=== PATIENT | female | born 1985 | race Caucasian/White ===

== ENCOUNTER 2025-01-11 09:00 | Outpatient (AMB) | payer OTHER, SELFPAY ==
[2025-01-11 09:07] VITALS: BP 107/71; PULSE 63; RESP 16; O2SAT 100; BMI 26.1
--- NOTE | 2025-01-11 09:07 | A.OFFVIS_ITS ---
Vital Signs 01/11/25 09:07 Height 5 ft 1 in Weight 138 lb BMI 26.1 BP 107/71 Blood Pressure Location Rt brachial Position Sitting Respiration 16 Pulse 63 Pulse Source Pulse Oximeter Pulse Oximetry (%) 100 Oxygen Delivery Method Room Air Intake Visit Reasons: re-est Migraine Allergies latex (LATEX) Allergy (Intermediate, Unverified 01/11/25 09:07) HIVES AND SWELLING Medication List - Last Reconciled 01/13/25 by Iwona Dominguez, ALEXA rizatriptan mg PO HPI Comments Details: Elba is a 39-year-old female patient who has been seeing at [facility] for migraine and occipital neuralgia. She is transferring her care here to [facility]. Historically, her headaches have been predominantly occipital radiating to the neck area and retro-orbital areas. Headaches have often awoken her from sleep when they become severe and can arise at any point during the day. Headaches come with a sense of fullness in her head and are associated with light and sound sensitivity, nausea, and anxiety. She denies any auras or visual disturbances. She has tried several agents for her migraines including: Amitriptyline which caused excessive somnolence Topiramate, which caused significant brain fog Propranolol we have historically avoided due to lower blood pressures Nurtec which she has currently been taking initially helped though is now becoming less effective. She takes 75 mg every other day She has more recently been getting severe migraine-type headaches on average twice per week. Her migraines are occipital and bilateral. They radiate to the retro-orbital areas and are associated with severe light and sound sensitivity. She feels that she has a near constant level of light sensitivity and has been wearing sunglasses much more lately due to her sensitivity. Her migraines and continuous light sensitivity have been significantly impacting her day-to-day life and she is finding it more and more difficult to perform her activities of daily living because of her symptoms. She notes that her headaches are often worse during her work week when she feels tense at work. For abortive therapy, she has been taking naproxen a couple of times per week and Tylenol a couple of times per week. Sleep has been going well. She has no difficulty sleeping and feels that she feels rested in the morning. She has had headaches historically with her menses however generally these headaches are more mild and her more severe type headaches are not necessarily associated with her menses. [facility] Medical History (Updated 01/13/25 @ 10:02 by Iwona Dominguez CNP) Episodic headache Review of Systems Const All systems reviewed & are unremarkable except as noted in HPI and below Physical Exam Vital Signs: Last Vital Signs Pulse 63 01/11/25 09:07 Resp 16 01/11/25 09:07 BP 107/71 01/11/25 09:07 Pulse Ox 100 01/11/25 09:07 Oxygen Delivery Method Room Air 01/11/25 09:07 BMI result Body Mass Index 26.1 Const General: cooperative, healthy appearing, comfortable and no acute distress Nutritional Appearance: well nourished Orientation/consciousness: patient oriented x3 Limitations: no limitations HEENT Head: Yes normal to inspection and Yes normocephalic Eyes General: appearance normal, both eyes and all related structures Visual Oleary: normal visual oleary by confrontation Alignment and Position: alignment normal Periorbital: periorbital findings normal Eyelids: Yes eyelids normal Conjunctivae: conjunctivae normal Sclerae: sclerae normal Neck Neck: Yes normal visual inspection and Yes full ROM Back/Spine/Pelvis Other: Bilateral occipital notch tenderness and bilateral trapezius trigger points Cervical Spine: normal cervical lordosis Thoracic/Lumbar Spine: thoracic and lumbar spine normal to inspection Neuro General: patient oriented x3 Cranial nerves: Yes CN's II-XII intact bilaterally Cognition (Neuro): normal cognition Gait exam (Neuro): Normal gait present Motor exam (neuro): no tremor noted Romberg Test: Negative Pupils: Normal pupillary reactivity/response: bilateral Psych Appearance: grossly normal Mental Status: mental status grossly normal Speech and movement: Normal speech and movement present and Clear speech present Affect: normal affect Attitude: cooperative Thought process: Normal thought process present Thought content: Normal thought content present Insight: Good insight present (Psych) Judgement: Good judgement present (Psych) Assessment & Plan Assessment & Plan (1) Migraine without aura and without status migrainosus, not intractable: Code(s): G43.009 - Migraine without aura, not intractable, without status migrainosus Category: Medical Plan: . (2) Occipital neuralgia: Code(s): M54.81 - Occipital neuralgia Category: Medical Plan: . Magaly Arreola is a 39-year-old female patient who has been seeing at [facility] for migraine and occipital neuralgia. She is transferring her care here to [facility]. She has headaches consistent with episodic migraine and occipital neuralgia. There was likely a tension component as her headaches can tend to be worse during the work week and she notes a sensation of tension building on her workdays at times. 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 We together discussed escalations steps in therapy including some of the injectable anti CGRP therapies. For her tension component, I will also provide her with tizanidine. I am recommending 2 mg nightly. At the time of her next visit, we can consider her abortive therapies once her headaches are better controlled. She has in the past use rizatriptan however this is not been beneficial though in the setting of more frequent headaches, abortive therapies can become less effective. -start a trial of Emgality (240 mg loading dose and 120 mg monthly) -start a trial of tizanidine 2 mg nightly -consider abortive therapies at time of next visit if headaches have improved -in the meantime, can use [id number] analgesics sparingly Medications: New tizanidine 2 mg PO BEDTIME 30 tabs 5RF muscle spasticity 30 days galcanezumab-gnlm (Emgality Pen) Loading dose 240 mg (2 mL) subcut ONCE 2 mL 0RF galcanezumab-gnlm (Emgality Pen) 120 mg subcut QMONTH 1 mL 4RF Coding Level of Care Code Est Pt Level 4 (06079) Diagnoses Migraine without aura and without status migrainosus, not intractable G43.009 Occipital neuralgia M54.81
--- OUTSIDE RECORDS SUMMARY | 2025-01-11 09:48 | XMS_ITS | Data Portability ---
Author Organization [facility], Main Office Address [address] [place] [address] Care Team Providers Care Station G[place]eman Name Role Phone XIOMARA COOPER Primary Care Provider [phone] [facility] [employer] ARCHITECT Manager Maritime ADALI BARROSO Neurologist [facility] Referring Provider Assessment No assessment recorded. Plan of Treatment Reminders Order Date Submit Date Provider Last Modified By Organization Details Last Modified Time Details Appointments None record ed. Lab CBC w/ auto diff 2024 025 ANGELA [facility] (Centralized Electronic Ordering - All Locations), Patient Can Go To The Location Of Their Choice, 5 22:05:58 CBC w/ auto diff 2023 024 ANGELA [facility] (Centralized Electronic Ordering - All Locations), Patient Can Go To The Location Of Their Choice, [id number] 4 13:00:05 TSH, ultra- sensit debi, serum 2023 024 ANGELA [facility] (Centralized Electronic Ordering - All Locations), Patient Can Go To The Location Of Their Choice, [id number] 4 06:09:21 lipid panel, serum 2023 024 ANGELA [facility] (Centralized Electronic Ordering - All Locations), Patient Can Go To The Location Of Their Choice, [id number] 4 06:09:21 CMP, serum or plasma 2023 024 ANGELA [facility] (Centralized Electronic Ordering - All Locations), Patient Can Go To The Location Of Their Choice, [id number] 4 06:09:20 CBC w/ auto diff 2023 024 ANGELA [facility] (Centralized Electronic Ordering - All Locations), Patient Can Go To The Location Of Their Choice, [id number] 4 06:09:20 Referral neurol ogist referr al - Cervic o-occi pital headac hes. Intere sted in occipi stephen block. 2024 025 Not available 5 11:33:33 gyneco logist referr al 2024 025 [email or web address] Not available 5 10:04:41 gyneco logist referr al 2023 024 [email or web address] Not available 4 11:05:50 Procedures None record ed. Surgeries None record ed. Imaging MAMMO, screen ing, bilate ral 2024 [facility] [address], [place], [address], 5 10:14:58 Medication Orders topira mate 50 mg tablet 2024 025 FREDONIA [facility], [address] [place] [address], [id number], 5 09:45:14 topira mate 50 mg tablet 2023 024 [facility], [address] [place] [address], [address], 4 10:29:59 Patient TargetsNo targets recorded. Patient Instructions Encounter Date Encounter Id Patient Instructions Last Modified By Organization Details Last Modified Time 08/21/2021 [id number] migraine headach e: care instructions Not available 08/21/2021 16:59:53 gastroesophageal reflux disease (GERD): care instructions Not available 08/21/2021 17:00:20 11/23/2023 [id number] high cholesterol : care instructions Not available 11/23/2023 09:07:17 When You Want to Lose Weight: Care Instructions Not available 11/23/2023 09:03:49 01/20/2024 [id number] learning about h igh white blood cell counts Not available 01/20/2024 12:59:52 12/07/2024 [id number] mammogram: about this test Not available 12/07/2024 09:30:12 Generalized Anxi ety Disorder: Care Instructions Not available 12/07/2024 12:26:44 Reason for Referral Manager Maritime Referral for Sc reening for malignant neoplasm of cervix Referring Physician: Xiomara Cooper, Internal Medicine, Encounter Date: 11/23/2023 Manager Maritime Referral for Ca ncer cervix screening status Referring Physician: Xiomara Cooper Internal Medicine, Encounter Date: 12/07/2024 Neurologist Referral for Cer rebeca-occipital neuralgia Cervico-occipital headaches. Interested in occipital block. Referring Physician: Xiomara Cooper Internal Medicine, Encounter Date: 12/07/2024 Results Created Date Observation Date Name Description Value Unit Range Abnormal Flag Note LastModifiedBy Organization Detail LastModifiedTime 12/09/19 24 12/10/2023 CBC WITH DIFFE RENTI AL/PL ATELE T WBC 3.3 x10e3 /uL 3.4-10 .8 below low normal Not Available [facility] ([facility]) [address] [place], [address], 12/10/2023 06:09:19 12/09/19 24 12/10/2023 CBC WITH DIFFE RENTI AL/PL ATELE T RBC 3.68 x10e6 /uL 3.77-5 .28 below low normal Not Available [facility] ([facility]) [address] [place], [address], 12/10/2023 06:09:19 12/09/19 24 12/10/2023 CBC WITH DIFFE RENTI AL/PL ATELE T hemoglobin 11.7 g/dL 11.1-1 5.9 normal Not Available [facility] ([facility]) [address] [place], [address], 12/10/2023 06:09:19 12/09/19 24 12/10/2023 CBC WITH DIFFE RENTI AL/PL ATELE T hematocrit 35.8 % 34.0-4 6.6 normal Not Available [facility] ([facility]) [address] [place], [address], 12/10/2023 06:09:19 12/09/19 24 12/10/2023 CBC WITH DIFFE RENTI AL/PL ATELE T MCV 97 fL 79-97 normal Not Available [facility] ([facility]) [address] [place], [address], 12/10/2023 06:09:19 12/09/19 24 12/10/2023 CBC WITH DIFFE RENTI AL/PL ATELE T MCH 31.8 pg 26.6-3 3.0 normal Not Available [facility] ([facility]) [address] [place], [address], 12/10/2023 06:09:19 12/09/19 24 12/10/2023 CBC WITH DIFFE RENTI AL/PL ATELE T MCHC 32.7 g/dL 31.5-3 5.7 normal Not Available [facility] ([facility]) [address] [place], [address], 12/10/2023 06:09:19 12/09/19 24 12/10/2023 CBC WITH DIFFE RENTI AL/PL ATELE T RDW 12.3 % 11.7-1 5.4 Not Available [facility] ([facility]) [address] [place], [address], 12/10/2023 06:09:19 12/09/19 24 12/10/2023 CBC WITH DIFFE RENTI AL/PL ATELE T platelets 300 x10e3 /uL 150-45 0 normal Not Available [facility] ([facility]) [address] [facility], [place], [address], 12/10/2023 06:09:19 12/09/19 24 12/10/2023 CBC WITH DIFFE RENTI AL/PL ATELE T neutrophils 41 % not estab. normal Not Available [facility] ([facility]) [address] [facility], [place], [address], 12/10/2023 06:09:19 12/09/19 24 12/10/2023 CBC WITH DIFFE RENTI AL/PL ATELE T lymphs 48 % not estab. normal Not Available [facility] ([facility]) [address] [facility], [place], [address], 12/10/2023 06:09:19 12/09/19 24 12/10/2023 CBC WITH DIFFE RENTI AL/PL ATELE T monocytes 9 % not estab. normal Not Available [facility] ([facility]) [address] [facility], [place], [address], 12/10/2023 06:09:19 12/09/19 24 12/10/2023 CBC WITH DIFFE RENTI AL/PL ATELE T eos 1 % not estab. normal Not Available [facility] ([facility]) [address] [facility], [place], [address], 12/10/2023 06:09:19 12/09/19 24 12/10/2023 CBC WITH DIFFE RENTI AL/PL ATELE T basos 1 % not estab. normal Not Available [facility] ([facility]) [address] [place], [address], 12/10/2023 06:09:19 12/09/19 24 12/10/2023 CBC WITH DIFFE RENTI AL/PL ATELE T immature cells FIRST ASSIST Not Available [facility] ([facility]) [address] [place], [address], 12/10/2023 06:09:19 12/09/19 24 12/10/2023 CBC WITH DIFFE RENTI AL/PL ATELE T neutrophils (absolute) 1.3 x10e3 /uL 1.4-7. 0 below low normal Not Available [facility] ([facility]) [address] [facility], [place], [address], 12/10/2023 06:09:19 12/09/19 24 12/10/2023 CBC WITH DIFFE RENTI AL/PL ATELE T lymphs (absolute) 1.6 x10e3 /uL 0.7-3. 1 normal Not Available [facility] ([facility]) [address] [place], [address], 12/10/2023 06:09:19 12/09/19 24 12/10/2023 CBC WITH DIFFE RENTI AL/PL ATELE T monocytes(ab solute) 0.3 x10e3 /uL 0.1-0. 9 normal Not Available [facility] ([facility]) [address] [place], [address], 12/10/2023 06:09:19 12/09/19 24 12/10/2023 CBC WITH DIFFE RENTI AL/PL ATELE T eos (absolute) 0.0 x10e3 /uL 0.0-0. 4 normal Not Available [facility] ([facility]) [address] [place], [address], 12/10/2023 06:09:19 12/09/19 24 12/10/2023 CBC WITH DIFFE RENTI AL/PL ATELE T baso (absolute) 0.0 x10e3 /uL 0.0-0. 2 normal Not Available [facility] ([facility]) [address] [place], [address], 12/10/2023 06:09:19 12/09/19 24 12/10/2023 CBC WITH DIFFE RENTI AL/PL ATELE T immature granulocytes 0 % not estab. Not Available [facility] ([facility]) [address] [facility], [place], [address], 12/10/2023 06:09:19 12/09/19 24 12/10/2023 CBC WITH DIFFE RENTI AL/PL ATELE T immature grans (abs) 0.0 x10e3 /uL 0.0-0. 1 Not Available [facility] ([facility]) [address] [facility], [place], [address], 12/10/2023 06:09:19 12/09/19 24 12/10/2023 CBC WITH DIFFE RENTI AL/PL ATELE T NRBC FIRST ASSIST Not Available [facility] ([facility]) [address] [facility], [place], [address], 12/10/2023 06:09:19 12/09/19 24 12/10/2023 CBC WITH DIFFE RENTI AL/PL ATELE T hematology comments: FIRST ASSIST Not Available [facility] ([facility]) [address] [facility], [place], [address], 12/10/2023 06:09:19 12/09/19 24 12/10/2023 COMP. METAB OLIC PANEL (14) glucose 86 mg/dL 70-99 normal Not Available [facility] ([facility]) [address] [facility], [place], [address], 12/10/2023 06:09:20 12/09/19 24 12/10/2023 COMP. METAB OLIC PANEL (14) BUN 11 mg/dL 6-20 normal Not Available [facility] ([facility]) [address] [place], [address], 12/10/2023 06:09:20 12/09/19 24 12/10/2023 COMP. METAB OLIC PANEL (14) creatinine 0.85 mg/dL 0.57-1 .00 normal Not Available [facility] ([facility]) [address] [place], [address], 12/10/2023 06:09:20 12/09/19 24 12/10/2023 COMP. METAB OLIC PANEL (14) eGFR 90 mL/mi n/1.7 3 >59 normal Not Available [facility] ([facility]) [address] [place], [address], 12/10/2023 06:09:20 12/09/19 24 12/10/2023 COMP. METAB OLIC PANEL (14) BUN/creatini ne ratio 13 9-23 normal Not Available [facility] ([facility]) [address] [facility] [place], [address], 12/10/2023 06:09:20 12/09/19 24 12/10/2023 COMP. METAB OLIC PANEL (14) sodium 138 mmol/ L 134-14 4 normal Not Available [facility] ([facility]) [address] [facility] [place], [address], 12/10/2023 06:09:20 12/09/19 24 12/10/2023 COMP. METAB OLIC PANEL (14) potassium 4.1 mmol/ L 3.5-5. 2 normal Not Available [facility] ([facility]) [address] [place], [address], 12/10/2023 06:09:20 12/09/19 24 12/10/2023 COMP. METAB OLIC PANEL (14) chloride 102 mmol/ L 96-106 normal Not Available [facility] ([facility]) [address] [facility] [place], [address], 12/10/2023 06:09:20 12/09/19 24 12/10/2023 COMP. METAB OLIC PANEL (14) carbon dioxide, total 22 mmol/ L 20-29 normal Not Available [facility] ([facility]) [address] [facility] [place], [address], 12/10/2023 06:09:20 12/09/19 24 12/10/2023 COMP. METAB OLIC PANEL (14) calcium 9.2 mg/dL 8.7-10 .2 normal Not Available [facility] ([facility]) [address] [place], [address], 12/10/2023 06:09:20 12/09/19 24 12/10/2023 COMP. METAB OLIC PANEL (14) protein, total 6.8 g/dL 6.0-8. 5 normal Not Available [facility] ([facility]) [address] [place], [address], 12/10/2023 06:09:20 12/09/19 24 12/10/2023 COMP. METAB OLIC PANEL (14) albumin 4.6 g/dL 3.9-4. 9 normal Not Available [facility] ([facility]) [address] [facility] [place], [address], 12/10/2023 06:09:20 12/09/19 24 12/10/2023 COMP. METAB OLIC PANEL (14) globulin, total 2.2 g/dL 1.5-4. 5 Not Available [facility] ([facility]) [address] [facility] [place], [address], 12/10/2023 06:09:20 12/09/19 24 12/10/2023 COMP. METAB OLIC PANEL (14) bilirubin, total 0.6 mg/dL 0.0-1. 2 normal Not Available [facility] ([facility]) [address] [facility] [place], [address], 12/10/2023 06:09:20 12/09/19 24 12/10/2023 COMP. METAB OLIC PANEL (14) alkaline phosphatase 31 IU/L 44-121 below low normal Not Available [facility] ([facility]) [address] [facility] [place], [address], 12/10/2023 06:09:20 12/09/19 24 12/10/2023 COMP. METAB OLIC PANEL (14) AST (SGOT) 16 IU/L 0-40 normal Not Available [facility] ([facility]) [address] [facility] [place], [address], 12/10/2023 06:09:20 12/09/19 24 12/10/2023 COMP. METAB OLIC PANEL (14) ALT (SGPT) 13 IU/L 0-32 normal Not Available [facility] ([facility]) [address] [facility] [place], [address], 12/10/2023 06:09:20 12/09/19 24 12/10/2023 LIPID PANEL cholesterol, total 145 mg/dL 100-19 9 normal Not Available [facility] ([facility]) [address] [facility] [place], [address], 12/10/2023 06:09:21 12/09/19 24 12/10/2023 LIPID PANEL triglyceride s 38 mg/dL 0-149 normal Not Available [facility] ([facility]) [address] [facility] [place], [address], 12/10/2023 06:09:21 12/09/19 24 12/10/2023 LIPID PANEL HDL cholesterol 69 mg/dL >39 normal Not Available [facility] ([facility]) [address] [facility] [place], [address], 12/10/2023 06:09:21 12/09/19 24 12/10/2023 LIPID PANEL VLDL cholesterol latoya 9 mg/dL 5-40 Not Available [facility] ([facility]) [address] [facility] [place], [address], 12/10/2023 06:09:21 12/09/19 24 12/10/2023 LIPID PANEL LDL chol calc ([facility]) 67 mg/dL 0-99 Not Available [facility] ([facility]) [address] [place], [address], 12/10/2023 06:09:21 12/09/19 24 12/10/2023 LIPID PANEL LDL calc comment: FIRST ASSIST Not Available [facility] ([facility]) [address] [facility] [place], [address], 12/10/2023 06:09:21 12/09/19 24 12/10/2023 TSH TSH 1.220 uIU/m L 0.450- 4.500 normal Not Available [facility] ([facility]) [address] [place], [address], 12/10/2023 06:09:21 12/08/19 25 12/07/2024 CBC WITH DIFFE RENTI AL/PL ATELE T WBC 3.3 x10e3 /uL 3.4-10 .8 below low normal Not Available [facility] ([facility]) [address] [place], [address], 12/07/2024 22:05:58 12/08/19 25 12/07/2024 CBC WITH DIFFE RENTI AL/PL ATELE T RBC 3.73 x10e6 /uL 3.77-5 .28 below low normal Not Available [facility] ([facility]) [address] [place], [address], 12/07/2024 22:05:58 12/08/19 25 12/07/2024 CBC WITH DIFFE RENTI AL/PL ATELE T hemoglobin 11.9 g/dL 11.1-1 5.9 normal Not Available [facility] ([facility]) [address] [place], [address], 12/07/2024 22:05:58 12/08/19 25 12/07/2024 CBC WITH DIFFE RENTI AL/PL ATELE T hematocrit 36.2 % 34.0-4 6.6 normal Not Available [facility] ([facility]) [address] [place], [address], 12/07/2024 22:05:58 12/08/19 25 12/07/2024 CBC WITH DIFFE RENTI AL/PL ATELE T MCV 97 fL 79-97 normal Not Available [facility] ([facility]) [address] [facility], [place], [address], 12/07/2024 22:05:58 12/08/19 25 12/07/2024 CBC WITH DIFFE RENTI AL/PL ATELE T MCH 31.9 pg 26.6-3 3.0 normal Not Available [facility] ([facility]) [address] [place], [address], 12/07/2024 22:05:58 12/08/19 25 12/07/2024 CBC WITH DIFFE RENTI AL/PL ATELE T MCHC 32.9 g/dL 31.5-3 5.7 normal Not Available [facility] ([facility]) [address] [place], [address], 12/07/2024 22:05:58 12/08/19 25 12/07/2024 CBC WITH DIFFE RENTI AL/PL ATELE T RDW 12.1 % 11.7-1 5.4 Not Available [facility] ([facility]) [address] [place], [address], 12/07/2024 22:05:58 12/08/19 25 12/07/2024 CBC WITH DIFFE RENTI AL/PL ATELE T platelets 303 x10e3 /uL 150-45 0 normal Not Available [facility] ([facility]) [address] [place], [address], 12/07/2024 22:05:58 12/08/19 25 12/07/2024 CBC WITH DIFFE RENTI AL/PL ATELE T neutrophils 44 % not estab. normal Not Available [facility] ([facility]) [address] [place], [address], 12/07/2024 22:05:58 12/08/19 25 12/07/2024 CBC WITH DIFFE RENTI AL/PL ATELE T lymphs 45 % not estab. normal Not Available [facility] ([facility]) [address] [place], [address], 12/07/2024 22:05:58 12/08/19 25 12/07/2024 CBC WITH DIFFE RENTI AL/PL ATELE T monocytes 9 % not estab. normal Not Available [facility] ([facility]) [address] [facility], [place], [address], 12/07/2024 22:05:58 12/08/19 25 12/07/2024 CBC WITH DIFFE RENTI AL/PL ATELE T eos 1 % not estab. normal Not Available [facility] ([facility]) [address] [facility], [place], [address], 12/07/2024 22:05:58 12/08/19 25 12/07/2024 CBC WITH DIFFE RENTI AL/PL ATELE T basos 1 % not estab. normal Not Available [facility] ([facility]) [address] [place], [address], 12/07/2024 22:05:58 12/08/19 25 12/07/2024 CBC WITH DIFFE RENTI AL/PL ATELE T immature cells FIRST ASSIST Not Available [facility] ([facility]) [address] [place], [address], 12/07/2024 22:05:58 12/08/19 25 12/07/2024 CBC WITH DIFFE RENTI AL/PL ATELE T neutrophils (absolute) 1.5 x10e3 /uL 1.4-7. 0 normal Not Available [facility] ([facility]) [address] [place], [address], 12/07/2024 22:05:58 12/08/19 25 12/07/2024 CBC WITH DIFFE RENTI AL/PL ATELE T lymphs (absolute) 1.5 x10e3 /uL 0.7-3. 1 normal Not Available [facility] ([facility]) [address] [facility], [place], [address], 12/07/2024 22:05:58 12/08/19 25 12/07/2024 CBC WITH DIFFE RENTI AL/PL ATELE T monocytes(ab solute) 0.3 x10e3 /uL 0.1-0. 9 normal Not Available [facility] ([facility]) [address] [facility], [place], [address], 12/07/2024 22:05:58 12/08/19 25 12/07/2024 CBC WITH DIFFE RENTI AL/PL ATELE T eos (absolute) 0.0 x10e3 /uL 0.0-0. 4 normal Not Available [facility] ([facility]) [address] [place], [address], 12/07/2024 22:05:58 12/08/19 25 12/07/2024 CBC WITH DIFFE RENTI AL/PL ATELE T baso (absolute) 0.0 x10e3 /uL 0.0-0. 2 normal Not Available [facility] ([facility]) [address] [facility], [place], [address], 12/07/2024 22:05:58 12/08/19 25 12/07/2024 CBC WITH DIFFE RENTI AL/PL ATELE T immature granulocytes 0 % not estab. Not Available [facility] ([facility]) [address] [place], [address], 12/07/2024 22:05:58 12/08/19 25 12/07/2024 CBC WITH DIFFE RENTI AL/PL ATELE T immature grans (abs) 0.0 x10e3 /uL 0.0-0. 1 Not Available [facility] ([facility]) [address] [place], [address], 12/07/2024 22:05:58 09/19/20 25 12/07/2024 CBC WITH DIFFE RENTI AL/PL ATELE T NRBC FIRST ASSIST Not Available [facility] ([facility]) [address] [facility], [place], [address], 12/07/2024 22:05:58 12/08/19 25 12/07/2024 CBC WITH DIFFE RENTI AL/PL ATELE T hematology comments: FIRST ASSIST Not Available [facility] ([facility]) [address] [facility], [place], [address], 12/07/2024 22:05:58 10/15/19 23 10/14/2022 US, georgina t, limit ed PROCED URE: MM Digita l Mammo Bilate ral, US Breast Right Limite d INDICA TION: Screen ing exam left breast . Palpab le abnorm ality right breast COMPAR MATT: 2019 TECHNI QUE: Digita l diagno stic mammog romario consis ting of CC and MLO views of the breast s with 3D tomosy nthesi s and CAD In additi on, target ed high-r esolut ion ultras ound of the right breast was perfor med FINDIN GS: Breast tissue is extrem lynn dense which decrea ses the sensit ivity of mammog citlalli. No suspic ious masses or areas of sultana ectura l distor tion or calcif icatio ns apprec iated mammog raphic ally within either breast . Right breast ultras ound demons trates an intram ammary lymph node at the 10:00 positi on 7.5 cm from the nipple . The lymph node is unchan ged in size and appear ance when compar ed to 2019 IMPRES MAIA: No mammog raphic or sonogr aphic eviden ce of malign tyshawn. No change in the intram ammary lymph node in the area of palpab le concer n RECOMM ENDATI ON: Clinic al follow -up and manage ment BI-RAD S: 2 (Benig n) Lay letter mailed to peymansocorro poncho WSN: [id number] Orderi ng Physic ritchie: Cayetano Cooper Dictat ed By: Osmany Perales MD Dictat ed Date/T ca: 9:07 am Review ed By: Osmany Perales MD Signed By: Osmany Perales MD Signed Date/T ca: 9:07 am Transc ribed By: VIVIEN Transc ribed Date/T ca: 8:51 am Patisocorro t Class: Outpat ient [id number] [facility] ([facility]) [address], [place], [address], 11/23/2023 08:44:35 10/15/1910/14/2022 mm digit al mammo bilat eral PROCED URE: MM Digita l Mammo Bilate ral, US Breast Right Limite d INDICA TION: Screen ing exam left breast . Palpab le abnorm ality right breast COMPAR MATT: 2019 TECHNI QUE: Digita l diagno stic mammog romario consis ting of CC and MLO views of the breast s with 3D tomosy nthesi s and CAD In additi on, target ed high-r esolut ion ultras ound of the right breast was perfor med FINDIN GS: Breast tissue is extrem lynn dense which decrea ses the sensit ivity of mammog citlalli. No suspic ious masses or areas of sultana ectura l distor tion or calcif icatio ns apprec iated mammog raphic ally within either breast . Right breast ultras ound demons trates an intram ammary lymph node at the 10:00 positi on 7.5 cm from the nipple . The lymph node is unchan ged in size and appear ance when compar ed to 2019 IMPRES MAIA: No mammog raphic or sonogr aphic eviden ce of malign tyshawn. No change in the intram ammary lymph node in the area of palpab le concer n RECOMM ENDATI ON: Clinic al follow -up and manage ment BI-RAD S: 2 (Benig n) Lay letter mailed to jaspal isaac WSN: [id number] Orderi ng Physic ritchie: Cayetano Cooper Dictat ed By: Osmany Perales MD Dictat ed Date/T ca: 9:07 am Review ed By: Angella JO, Osmany Ochoa Signed By: Osmany Perales MD Signed Date/T ca: 9:07 am Transc ribed By: VIVIEN Transc riptio n Date/T ca: 8:51 am Birads : Patien t Class: Outpat ient [id number] [facility] ([facility]pt [facility]) [address] [facility], [place], [address], 11/23/2023 08:44:35 10/15/1910/14/2022 MAMMO , scree etelvina, bilat eral No observ ation record ed. [id number] [facility] [address] [facility], [place], [address], 11/23/2023 08:44:35 Result Notes None recorded. Problems Name Problem SNOMED Code Status Onset Date Resolution Date Notes Provider Name and Address Organization Details Recorded Time Varicell a 84314682 Completed 200711/01/2019 Mira beckham [facility] 0 15:13:33 MMR vaccinat ion status 230194089 Completed 201111/01/2019 Mira beckham [facility] 0 15:13:12 Headache 07334007 Completed 201906/01/2019 Xiomara Cooper PA-C [address], [place], [address] , [facility] 0 10:48:34 Migraine [id number] Active 2019 Xiomara Cooper PA-C [address], [place], [address] , [facility] 0 10:48:50 Gastroes ophageal reflux disease 306156975 Completed 202111/23/2023 Xiomara Cooper PA-C [address], [place], [address] , [facility] 4 09:03:28 Mass of right breast [id number] 036989 Active 2022 Melissa Peggy beckham, [facility] 3 17:06:33 Cystic fibroade nosis of breast 8549415 Active 2023 Xiomara Cooper PA-C [address] [facility] [address], [place], [address] , [facility] 4 09:10:18 Lymphade nitis [id number] Active 2023 Joselyn Ramiro beckham, [facility] 4 10:06:32 Generali zed anxiety disorder 99997299 Active 2023 Xiomara Cooper PA-C [address] [facility] [address], [place], [address] , [facility] 5 12:26:37 Cervico- occipita l neuralgi a 90521035 Active 2023 Xiomara Cooper PA-C [address] [facility] [address], [place], [address] , [facility] 4 10:45:08 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 Xiomara Cooper PA-C [address] [facility] [address], [place], [address] , [facility] 4 16:20:54 Problem Notes None recorded. Procedures Surgical History Date Name Laterality Status Provider Name and Address Organization Details Recorded Time 3 Most Recent Mammogram completed Nhung Villar [facility] 10/15/2022 08:58:41 9 Date of Last Pap Smear completed Sangeeta Layton MA [facility] 08/21/2021 16:12:06 No surg proc w/in 30 days completed Roberta ulloa MA [facility] 06/01/2019 10:31:18 Imaging Results None recorded. Procedure Notes None recorded. Medical Equipment None Reported. Allergies Allergen ID Allergen Name Allergen Category Reaction Reaction Severity Criticality Documentation Date Start Date Code Code System Note Provider Name and Address Organization Details Recorded Time 01284 latex environme nt,medica tion hives moderate Not available 06/01/20192002 77212 91 RxNorm MARIN Urban, [facility] 0 10:10:03 Medications Name Sig Start Date Stop Date Status Note LastModified by Organization Details LastModified Time azithromyc in 250 mg tablet TAKE 2 TABLETS ON FIRST DAY , THEN 1 TABLET DAILY FOR 4 DAYS 12/03 completed Not Available Not Available Not Available Tubersol 5 tub. unit/0.1 mL intraderma l injection solution Inject 0.1 mL by intrader mal route. 01/17 completed Not Available Not Available Not Available rizatripta n 10 mg tablet TAKE ONE TABLET BY MOUTH EVERY DAY NEEDED FOR MIGRAINE - MAY REPEAT DOSE EVERY 2 HOURS FOR UP TO MAXIMUM OF 3 TABLETS 12/07 completed Not Available Not Available Not Available sumatripta n 50 mg tablet 01/19 completed Not Available Not Available Not Available acyclovir 400 mg tablet TAKE TWO TABLETS BY MOUTH TWICE A DAY FOR 5 DAYS 11/22 completed Not Available Not Available Not Available ketorolac 30 mg/mL (1 mL) injection solution Inject 2 mL every day by injectio n route for 2 days. 08/20 completed Not Available Not Available Not Available amitriptyl ine 10 mg tablet 01/19 completed Not Available Not Available Not Available triamcinol one acetonide 40 mg/mL suspension for injection Take 1 mL as needed by injectio n route for 1 day. 08/20 completed Not Available Not Available Not Available naproxen sodium 550 mg tablet TAKE 1 TABLET BY MOUTH TWO TIMES A DAY NEEDED FOR PAIN 08/21 completed Not Available Not Available Not Available omeprazole 20 mg capsule,de layed release Take 1 capsule every day by oral route. 08/25 completed Not Available Not Available Not Available clobetasol 0.05 % scalp solution APPLY AND GENTLY MASSAGE INTO AFFECTED AREA S) TWICE DAILY DIRECTED 11/22 completed Not Available Not Available Not Available topiramate 50 mg tablet TAKE ONE TABLET BY MOUTH EVERY DAY active Not Available Not Available No t Available butalbital -acetamino phen-caffe ine 50 mg-300 mg-40 mg capsule Take 2 capsules as needed by oral route for 5 days. 08/20 completed Not Available Not Available Not Available Nurtec ODT 75 mg dis[address] ting tablet PL[address] ONE TABLET ON TONGUE AND ALLOW TO DISSOLVE EVERY OTHER DAY active NEEDED Not Available Not Available Not Available Vitals Date Recorded Body mass index (BMI) Body height Provider Name and Address Organization Details Last Updated DateTime 08/21/2021 22.1 kg/m2 160.02 cm Xiomara Cooper PA-C [address], [address], [facility] 08/21/2021 16:23:49 Date Recorded Body weight Heart rate Oxygen saturation Oxygen saturation in Arterial blood by Pulse oximetry Body temperature Systolic And Diastolic Provider Name and Address Organization Details Last Updated DateTime 2 70472.2 5 g 76 /min 99 % 99 % 97.88 [degF] 104/72 mm[Hg] Sangeeta Layton [facility] 2 16:09:29 Date Recorded Body weight Body mass index (BMI) Body height Heart rate Oxygen saturation Oxygen saturation in Arterial blood by Pulse oximetry Body temperature Systolic And Diastolic Provider Name and Address Organization Details Last Updated DateTime 3 50888.2 3 g 22.5 kg/m2 160.02 cm 74 /min 96 % 96 % 98.7 [degF] 107/69 mm[Hg] Kzizy Dupree [facility] [place] 3 15:56:48 Date Recorded Body height Body mass index (BMI) Body weight Heart rate Oxygen saturation Oxygen saturation in Arterial blood by Pulse oximetry Body temperature Systolic And Diastolic Provider Name and Address Organization Details Last Updated DateTime 4 156.21 cm 25.3 kg/m2 10767.2 6 g 64 /min 100 % 100 % 98.3 [degF] 103/64 mm[Hg] Suzan Hampton LPN [place] - [facility] 4 08:37:38 Date Recorded Body height Body mass index (BMI) Body weight Heart rate Oxygen saturation Oxygen saturation in Arterial blood by Pulse oximetry Body temperature Systolic And Diastolic Provider Name and Address Organization Details Last Updated DateTime 5 156.21 cm 24.9 kg/m2 25384.3 8 g 57 /min 100 % 100 % 98.2 [degF] 96/63 mm[Hg] Catrachita Nelson MA [facility] 5 09:11:33 Date Recorded Body height Body mass index (BMI) Body weight Heart rate Oxygen saturation Oxygen saturation in Arterial blood by Pulse oximetry Body temperature Systolic And Diastolic Provider Name and Address Organization Details Last Updated DateTime 4 156.21 cm 25.7 kg/m2 31093.1 5 g 61 /min 100 % 100 % 98.3 [degF] 114/75 mm[Hg] Kizzy Dupree MA [facility] 4 10:31:04 Social History Question Answer Notes LastModified by Organizat ion Details LastModified Time Tobacco Smoking Status Never Smoker MARIN Urban, [facility] 06/01/2019 10:10:45 Is Blood Transfusion Acceptable In An Emergency? Yes [email or web address] Information not available 06/01/2019 What Is Your Level Of Caffeine Consumption? Moderate 1-2 Cups Coffee Daily Information not available 08/21/2021 How Much Tobacco Do You Chew? None [email or web address] Information not available 06/01/2019 Have You Been To An Area Known To Be High Risk For COVID-19? No Information not available 08/21/2021 What Type Of Diet Are You Following? REGULAR [email or web address] Information not available 06/01/2019 Which Illicit Or Recreational Drugs Have You Used? None Information not available 08/20/2020 Live Alone Or With Others? With Others And 1 Daughter And 1 Son [email or web address] Information not available 08/25/2022 Do You Take Precautions To Prevent Distracted Driving? Yes Information not available 08/21/2021 How Often Do You Need To Have Someone Help You When You Read Instructions, Pamphlets, Or Other Written Material From Your Doctor Or Pharmacy? Never [email or web address] Information not available 06/01/2019 Have You Served In The ? No [email or web address] Information not available 06/01/2019 Have You Or Anyone In Your Household Had Any Of The Following Symptoms In The Last 14 Days: Sore Throat, Cough, Chills, Body Aches For Unknown Reasons, Shortness Of Breath For Unknown Reasons, Loss Of Smell, Loss Of Taste, Fever At Or Greater Than 100 Degrees Fahrenheit? No Information not available 08/20/2020 Are You Or Anyone In Your Household A Health Care Provider Or Emergency Responder? No Information not available 08/20/2020 To The Best Of Your Knowledge Have You Been In Close Proximity To Any Individual Who Tested Positive For COVID-19? No Information not available 08/20/2020 *AWV ONLY* Are You Presently Prescribed Opioid Medication By PCP Or Specialist? If YES -Provider Assess The Benefit For Other, Non-opioid Pain Therapies Instead, Even If The Patient Does Not Have OUD But Is Possibly At Risk. No Information not available 08/20/2020 Have You Recently Traveled To A COVID-19 High Risk Area Or Gathering In The Last 10 Days? No Information not available 08/20/2020 What Was The Date Of Your Most Recent Tobacco Screening? 12/07/2024 [email or web address] Information not available 12/07/2024 How Many Children Do You Have? 2 [email or web address] Information not available 06/01/2019 Do You Use Protection During Sex? No Information not available 06/01/2019 Do You Use Your Seat Belt Or Car Seat Routinely? Yes Information not available 08/21/2021 Seat Belts Used Routinely Yes Information not available 08/21/2021 Are You Sexually Active? Yes [email or web address] Information not available 06/01/2019 Smoke Alarm In Home Yes Information not available 08/21/2021 Do You Have Smoke And Carbon Monoxide Detectors In Your Home? Yes Information not available 08/21/2021 At What Age Did You Start Smoking Tobacco? 1 [email or web address] Information not available 06/01/2019 Are You Passively Exposed To Smoke? No Information not available 06/01/2019 How Much Tobacco Do You Smoke? No [email or web address] Information not available 06/01/2019 Do You Use Sunscreen Routinely? Yes [email or web address] Information not available 06/01/2019 How Many Years Have You Smoked Tobacco? 0 [email or web address] Information not available 06/01/2019 Sex: Unknown Functional Status Question Answer Note LastModified by Organizat ion Details LastModified Time Do you use any illicit or recreational drugs? No Information not available 08/21/2021 Do you or have you ever used any other forms of tobacco or nicotine? No Information not available 08/21/2021 What is your level of alcohol consumption? Occasional [email or web address] Information not available 06/01/2019 Do you or have you ever used smokeless tobacco? Never used smokeless tobacco [email or web address] Information not available 06/01/2019 Are you currently employed? Yes [email or web address] Information not available 06/01/2019 Are you able to walk independently without assistance or assistive devices? [email or web address] Information not available 08/21/2021 Are you able to care for yourself independently? 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 Never used electronic cigarettes Information not available 08/21/2021 What is your exercise level? Moderate Information not available 06/01/2019 Mental Status None recorded. Family History Relationship Description Onset Age of this Age Resolved Age Notes LastModified by Organization Details LastModified Time Mother Immunodefici ency disorder 45 Not available 05/31 10:10:18 Mother Migraine Not availab le 06/01/2019 10:10:18 Mother Lupus erythematosu s 45 [email or web address] Not available 08/21 16:02:01 Medical History Condition Response Other N Gout N Kidney Stones N Blood Diseases N Hyperthyroidism N Breast Cancer N Depression N COPD N Lung Disease N Hypothyroidism N Defects or Inherited Disease N Anesthesia Complications N Headaches/Migraines N Varicose Veins N Anxiety Disorder N Obesity N Vision or Eye Problems N Arthritis N Head Injury/Concussion N Polyps N Infertility N Congenital Anomalies N Acid Reflux (GERD) N Cancer N Stroke N ADHD N Endometriosis N High Cholesterol N Liver Disease N Fibromyalgia N Kidney Disease N Heart Problems N Ear or Hearing Problems N Hospitalizations N Thyroid Problems N GI Problems N Acne N Eating Disorder N Skin Problems N Anemia Y Constipation N Bladder Problems N Mental Illness N Ovarian Cancer N Diabetes N Blood Transfusions N Seizures/Epilepsy N Tuberculosis N AIDS/HIV N Congestive Heart Failure (CHF) N Eczema N Diverticulitis N Abuse/Domestic Violence N Asthma N Allergies N Reflux/GERD N Hepatitis N Pulmonary Embolism N Hypertension N Chicken Pox N Autism Spectrum Disorder (ASD) N Osteoporosis N Gynecological History Statement/Question Response Date of Last Pap Smear 04/27/2018 Most Recent Mammogram 10/14/2022 Obstetrics History GPAL:G 0 P 0 0 0 0 Immunizations Vaccine Type Date Status Note Provider Name and Address Organization Details Recorded Time Hep B, adult 07/01/18 99 completed Mira Saul null, [facility] 11/01/2019 15:13:56 Hep B, adult 03/04/19 98 completed Mira Saul null, [facility] 11/01/2019 15:14:06 Hep B, adult 01/30/19 98 completed Mira Saul null, [facility] 11/01/2019 15:14:15 Influenza, split virus, quadrivalent, preservative 12/27/19 19 completed Mira Saul null, [facility] 11/01/2019 15:14:44 MMR 10/18/19 12 completed Mira Saul null, [facility] 11/01/2019 15:15:19 varicella 08/09/19 08 completed Mira Saul null, [facility] 11/01/2019 15:15:38 COVID-19, mRNA, LNP-S, PF, 100 mcg/0.5mL dose or 50 mcg/0.25mL dose 03/17/20 20 completed MARIN Osborn [facility] 08/21/2021 16:17:41 COVID-19, mRNA, LNP-S, PF, 100 mcg/0.5mL dose or 50 mcg/0.25mL dose 04/14/19 21 completed MARIN Osborn [facility] 08/21/2021 16:17:41 Tdap 07/29/19 21 completed MARIN Osborn, [facility] 08/21/2021 16:17:41 COVID-19, mRNA, LNP-S, PF, 100 mcg/0.5mL dose or 50 mcg/0.25mL dose 01/21/20 21 completed MARIN Osborn, [facility] 08/21/2021 16:17:41 Influenza, split virus, quadrivalent, PF 12/22/19 20 completed MARIN Osborn, [facility] 08/21/2021 16:17:41 Influenza, MDCK, quadrivalent, PF 12/27/19 18 completed MARIN Osborn, [facility] 08/21/2021 16:17:41 Influenza, split virus, quadrivalent, PF 01/06/20 21 completed MARIN Osborn, [facility] 08/21/2021 16:17:41 Influenza, split virus, trivalent, preservative 01/19/20 16 completed MARIN Osborn, [facility] 08/21/2021 16:17:41 Influenza, split virus, quadrivalent, preservative 02/08/20 17 completed MARIN Osborn, [facility] 08/21/2021 16:17:41 Tdap 08/14/19 17 completed MARIN Osborn, [facility] 08/21/2021 16:17:41 influenza, unspecified formulation 12/29/19 24 completed MARIN Knight, [facility] 12/07/2024 09:03:18 COVID-19, mRNA, LNP-S, PF, juan-sucrose, 30 mcg/0.3 mL 02/04/20 23 completed Not Available [facility] 12/07/2024 09:00:24 Influenza, split virus, quadrivalent, PF 01/06/20 23 completed Not Available [facility] 12/07/2024 09:00:24 Influenza, split virus, quadrivalent, PF 06/01/19 20 cancelled patient objection MARIN Mcneil, [facility] 06/01/2019 10:31:58 Influenza, split virus, trivalent, PF 12/08/19 25 completed MARIN Knight, [facility] 12/07/2024 09:13:04 Past Encounters Encounter ID Performer Location Encounter Start Date Encounter Closed Date Diagnosis/Indication Diagnosis SNOMED-CT Code Diagnosis ICD10 Code Diagnosis IMO Codes Diagnosis Note [id number] Sumit Zamudio MD Main Office [address] [facility] [address] [place] [address] 06/01/2019 10:03:04 06/01/2019 11:20:08 Influenza vaccination declined 539724123 Z28.21 received at [facility]. Adult [facility] th examination 322394428 Z00.00 Vaccines are UTD. Screening for malignant neoplasm of cervix 176307233 Z12.4 Anemia 448208842 D64.9 Migraine 02323337 G43.00 9 stable,con trolled with OTC meds. [facility] 57199901 E78.5 [id number] Rafa Shine MD Main Office [address] [place] [address] 12/04/2019 13:16:24 12/04/2019 13:28:26 Tuberculosis screening 348278456 Z11.1 [id number] Rafa Shine MD Main Office [address] [facility] [address] [place] [address] 12/07/2019 08:46:03 12/07/2019 09:49:48 [id number] Sumit Zamudio MD Main Office [address] [place] [address] 01/18/2020 15:16:47 01/18/2020 16:23:26 Mass of right breast 9237920136 7811979 N63.10 [id number] Xiomara Cooper PA-C Main Office [address] [facility] [address] [place] [address] 08/20/2020 10:59:32 08/20/2020 11:45:22 Adult health examination 168496290 Z00.00 Vaccines are UTD. Migraine 44255777 G43.00 9 stable,con trolled with OTC meds. Anemia 431627181 D64.9 heavy menses. Pt. is on iron supplement s. repeat labs. [id number] Juliet Ware MD Main Office [address] [place] [address] 08/21/2021 16:01:30 08/21/2021 16:39:31 Adult health examination 657480712 Z00.00 Vaccines are UTD. Migraine 17908454 G43.00 9 stable,con trolled with OTC meds. Gastroesop hageal reflux disease 022571223 K21.9 [id number] Juliet Ware MD Main Office [address] [place] [address] 08/25/2022 15:43:47 08/26/2022 08:31:58 Adult health examination 521450373 Z00.00 Vaccines are UTD. Pt sees SUB ASSEMBLY TEAM WORKER yearly Migraine 76474001 G43.00 9 stable, controlled with OTC meds. Mass of right breast 568 5065396 1011899 N63.10 Last mammogram was 3 years ago. Pt has a SUB ASSEMBLY TEAM WORKER appointmen t at the end of the month and will discuss the appropriat e next steps. [id number] Gino Moulton MD Main Office [address] [place] [address] 11/23/2023 08:29:44 11/23/2023 09:24:30 Adult health examination 517794416 Z00.00 Vaccines are UTD. Pt sees SUB ASSEM[employer]Y TEAM WORKER yearly. Migraine 44244709 G43.00 9 6-8 migraines/ month in the last 6 months. Recommend to try topiramate 25 mg for 2 weeks, then 50 mg preventati ve dose and return with migraine diary in 6 weeks. PT. takes Excedrin migraine for acute episodes and is able to control headache with that. Follow up in 6 weeks. Generalize d anxiety disorder 07325788 F41.1 Moderately increased ADRY score, but pt. reports sleeping well and manages it with therapy monthly. Not interested in pharmacolo gic management . Body mass index 25-29 - overweight 468921510 E66.3 Z68.25 recommend to continue exercise and low calorie diet. Check labs. Weight gain 7658811 R63. 5 r/o thyroid disease. Hyperlipidemia 52517667 E78.5 Fatigue 43869990 R53.83 Lymphadenitis 43705161 I 88.9 R. breast. Last breast mammogram and ultrasound was stable last year. Pt. will discuss f/u with SUB ASSEMBLY TEAM WORKER at her visit in January. Screening for malignant neoplasm of cervix 123473677 Z12.4 [id number] Gino Moulton MD Main Office [address] [facility] [address] [facility] [place] [address] 01/20/2024 10:19:00 01/20/2024 10:59:53 Migraine 11524294 G43.009 Continue Nurtec. F/u with neuro. Cervico-oc cipital neuralgia 98615544 M54.81 F/u with neuro as scheduled. Leukocytosis 975683901 D 72.829 repeat CBC in 1 m. [id number] Gino Moulton MD Main Office [address] [facility] [address] [facility] [place] [address] 12/07/2024 08:58:53 12/07/2024 10:04:41 Adult health examination 760027666 Z00.00 Vaccines are UTD. Pt sees SUB ASSEMBLY TEAM WORKER yearly. Needs infl uenza immunization 824105731 Z23 19 YEARS AND OLDER ONLY Generalize d anxiety disorder 29116664 F41.1 978380 Moderately increased ADRY score, but pt. reports sleeping well and manages it with therapy monthly. Not interested in pharmacolo gic management . Cervico-oc cipital neuralgia 33979770 M54.81 recommend to see neurologis t for occipital block injection. pt had relief after injection in the past, but neurologis t left that she saw at [facility]. Migraine 99473620 G43.00 9 Has frequent ,up to 3 times per week, migraines. Pt takes Nurtec ODT for rescue. Tried amitriptyl ine 10 mg last year with multiple side effects , had to discontinu e. Seen by [facility] neurologis t , but she left before work up was completed. Pt had one occipital nerve injection which provided relief for over 6 weeks.missy m to return to neurology for injections . Start topiramate 25 mg daily, increase to 50 mg after 2-4 weeks if tolerated. 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 [id number] 3 Elba Zamorano Supriya [id number] Elba Epps Notes Date Note Type Note Provider Name and Address Organization Details Recorded Time 08/21/2021 text/html Generic HPI TemplateReported by [email or web address] year old female for annual PE. Sees SUB ASSEMBLY TEAM WORKER yearly. H/o abnormal PapSmear. Vaccines are up to date.migraines are now more frequent . IN the past month she had 4 migraine. Pt. takes OTC Excedrin migraine.GERD. Takes otc PPI.BMI is 22.1. ADRY score is 5 . Pt. reports some anxiety secondary to stress for the past 2 months.ROS as noted in the HPI [id number] [address], [place], [address], [facility] 08/21/2021 17:01:03 08/25/2022 text/html Generic HPI TemplateReported by [email or web address] year old female for annual PE. Sees SUB ASSEMBLY TEAM WORKER yearly. Vaccines are up to date.Pt reports tender lump in the upper outer quadrant of right breast that has gradually gotten bigger over the past 3 years.Migraines are occurring weekly. In the past month she had 4 migraines. Pt. takes OTC Excedrin migraine with relief and hydrates.She is no longer taking anything for GERD.BMI is 22.5.SUB ASSEMBLY TEAM WORKER scheduled for the end of this monthGAD score is 4. Pt. reports some anxiety secondary to stress but does not desire any medications. She is going to therapy every Tuesday morning in [place]. ROS as noted in the HPI [facility] [address] [facility] [address], [place], [address], [facility] 08/25/2022 17:13:16 11/23/2023 text/html Generic HPI TemplateReported by [email or web address] year old female for annual PE. Sees SUB ASSEMBLY TEAM WORKER yearly, next appt in January.PapSmear always abnormal, so gets annual colposcopy at [facility]. Vaccines are up to date.Migraines are occurring at least weekly. In the past month she had 6-8 migraines. Pt. takes OTC Excedrin migraine with relief and hydrates. Goes to chiropractor once a month which helps.She is no longer taking anything for GERD.BMI is 25.3 with 9 lb weight gain since August of 2022. Feels less stressed and contributes weight gain to that. Diet is good. Workouts on peloton 3-4x/week.ADRY score is 10. PHQ is 0. Pt. reports some anxiety secondary to stress but does not desire any medications. 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 Pt. was seen at [facility] neurology and diagnosed with occipital neuralgia. Had successful cortisone injection in the L. neck . Now f/u is in March. Pain improved but is not resolved . PT. will likely need R. neck injection as well. Migraine is improved . Pt. started on Nurtec for prevention every other day.Labs are all stable. WBcs were under norm. Xiomara Cooper PA-C [address] [facility] [address], [place], [address], [facility] 01/20/2024 13:02:01 12/07/2024 text/html Generic HPI TemplateReported by [email or web address] year old female for annual wellness visit..Sees SUB ASSEMBLY TEAM WORKER yearlyPapSmear always abnormal, so gets annual colposcopy at [facility].Mammogram last in 2022. Not due for regular screening.Vaccines are up to date.Migraines are occurring at least 3 times weekly. Pt takes Nurtec ODT for rescue which works usually well. Tried amitriptyline in january and discontinued due to side effects.BMI is 24.9 with 3 lb weight loss since January of 2024.ADRY score is 12. PHQ is 0. Pt. reports some anxiety secondary to stress but does not desire any medications. She is going to therapy monthly in [place].ROS as noted in the HPI Xiomara Cooper PA-C [address] [facility] [address], [place], [address], [facility] 12/07/2024 12:28:41 OBGyn Episode No OBEpisode recorded.
== END 2025-01-11 09:54 | disposition home or self-care (01) ==
LOC: HO.HSM 09:00
PROVIDERS: PCP Physician Assistant Medical; Visit Provider Nurse Practitioner
DX: G43.009 Migraine without aura, not intractable, without status migrainosus (principal); M54.81 Occipital neuralgia
CPT/HCPCS: 99214

== ENCOUNTER 2025-03-08 08:32 | Outpatient (AMB) | payer OTHER, SELFPAY ==
--- NOTE | 2025-03-08 08:34 | A.OFFVIS_ITS ---
Vital Signs 03/08/25 08:40 Height 5 ft 1 in Weight 140 lb BMI 26.4 BP 110/70 Blood Pressure Location Rt brachial Position Sitting Respiration 16 Pulse 70 Pulse Source Pulse Oximeter Pulse Oximetry (%) 99 Oxygen Delivery Method Room Air Intake Visit Reasons: 2m Sql Ssis Developer Required: No Allergies latex (LATEX) Allergy (Intermediate, Verified 03/08/25 08:41) HIVES AND SWELLING HPI Comments Details: Elba is a 39-year-old female patient who is being followed in the clinic for a history of migraine and occipital neuralgia. Historically, her headaches have been predominantly occipital radiating to the neck area and retro-orbital areas. Headaches have often awoken her from sleep when they become severe and can arise at any point during the day. Headaches come with a sense of fullness in her head and are associated with light and sound sensitivity, nausea, and anxiety. She denies any auras or visual disturbances. At the time of our last visit together on 01/28/2025, her migraines has been increasing and becoming more severe. She was averaging at least 2 migraine-type headaches twice per week but was having some level of migraine-type activity including light sensitivity and/or low-grade headache on most days of the week. She was wearing sunglasses nearly all the time even when indoors. She was having significant difficulty performing day-to-day activities because of her symptoms. She also noted the headaches were typically worse during her work week given stress levels and the lighting in her office. She reported good sleep and in general felt well rested in the morning. Despite good sleep, headaches would persist. She has had headaches historically with her menses however generally these headaches are more mild and her more severe type headaches are not necessarily associated with her menses. Since the time of her last visit, she has been taking the Emgality including both loading dose and maintenance dosing. She has so far taken to months worth and is soon going to be due for her next injection. She feels that her headache s have improved though she is still getting 1-2 migraines per week on a bad week. She did however have no migraines over the course of the last week and her light sensitivity has greatly improved. She is tolerating the medication well though does mentioned burning sensation with the injection itself. She has no skin irritation otherwise. She has been utilizing tizanidine on , Fridays, and Saturdays when she does not have work the next day. Unfortunately however the tizanidine 2 mg has caused significant somnolence/drowsiness in the morning even at the 2 mg dose. She has also made some other changes including ambient lighting in her workplace which she has found to be helpful in terms of her light sensitivity. Past medication trials have included: Amitriptyline-excessive somnolence Topiramate-significant brain fog Propranolol-never tried due to historically low blood pressures Nurtec -initially helped though became less effective over time Emgality-currently taking with the some obvious improvement Sumatriptan-no benefit Rizatriptan-no benefit PFSH Medical History (Updated 01/13/25 @ 10:02 by Iwona Dominguez CNP) Episodic headache Review of Systems Const All systems reviewed & are unremarkable except as noted in HPI and below Physical Exam Vital Signs: Last Vital Signs Pulse 70 03/08/25 08:40 Resp 16 03/08/25 08:40 BP 110/70 03/08/25 08:40 Pulse Ox 99 03/08/25 08:40 Oxygen Delivery Method Room Air 03/08/25 08:40 BMI result Body Mass Index 26.4 Const General: cooperative, healthy appearing, comfortable and no acute distress Nutritional Appearance: well nourished Orientation/consciousness: patient oriented x3 Limitations: no limitations HEENT Head: Yes normal to inspection and Yes normocephalic Eyes General: appearance normal, both eyes and all related structures Visual Oleary: normal visual oleary by confrontation Alignment and Position: alignment normal Periorbital: periorbital findings normal Eyelids: Yes eyelids normal Conjunctivae: conjunctivae normal Sclerae: sclerae normal Neck Neck: Yes normal visual inspection and Yes full ROM Back/Spine/Pelvis Other: Bilateral occipital notch tenderness and bilateral trapezius trigger points Cervical Spine: normal cervical lordosis Thoracic/Lumbar Spine: thoracic and lumbar spine normal to inspection Neuro General: patient oriented x3 Cranial nerves: Yes CN's II-XII intact bilaterally Cognition (Neuro): normal cognition Gait exam (Neuro): Normal gait present Motor exam (neuro): no tremor noted Romberg Test: Negative Pupils: Normal pupillary reactivity/response: bilateral Psych Appearance: grossly normal Mental Status: mental status grossly normal Speech and movement: Normal speech and movement present and Clear speech present Affect: normal affect Attitude: cooperative Thought process: Normal thought process present Thought content: Normal thought content present Insight: Good insight present (Psych) Judgement: Good judgement present (Psych) Assessment & Plan Assessment & Plan (1) Migraine without aura and without status migrainosus, not intractable: Code(s): G43.009 - Migraine without aura, not intractable, without status migrainosus Category: Medical Plan: . (2) Occipital neuralgia: Code(s): M54.81 - Occipital neuralgia Category: Medical Plan: . Plan Elba is a 39-year-old female patient who is following up for history of migraine and occipital neuralgia. At the time of our last visit, we started Emgality including loading dose and maintenance dosing. She has seen some benefit with this injection especially over the course of the last week and we will continue to utilize. I did explain that there may be continued benefit over the course of the next few months. She has tried tizanidine 2 mg nightly however she can not tolerate it during the work week due to excessive somnolence. I will have her stop this and try low- dose methocarbamol instead which is known to be less sedating. For abortive therapy, she has tried both sumatriptan and rizatriptan. I will try her on eletriptan 20 mg. I am hopeful that now that her migraines are under better control, she will have an easier time with abortive measures. -continue Emgality 120 mg monthly -discontinue tizanidine and start a trial of methocarbamol 500 mg nightly -trial of eletriptan 20 mg as needed for migraine abortive therapy -follow up in 3 months or sooner if needed Medications: New methocarbamol 500 mg PO BEDTIME 30 tabs 5RF 30 days eletriptan take 1 tab at onset of headache; if no relief may repeat 1 tab after at least 2 hrs; max = 4 tabs/24 hr PO 14 tabs 3RF Changed From galcanezumab-gnlm (Emgality Pen) 120 mg subcut QMONTH 1 mL 4RF To galcanezumab-gnlm (Emgality Pen) 120 mg subcut QMONTH 3 mL 3RF 90 days Discontinued tizanidine Discontinued Reason: Doctor's Order 2 mg PO BEDTIME 30 days 30 tabs 5RF muscle spasticity galcanezumab-gnlm (Emgality Pen) Loading dose Discontinued Reason: Doctor's Order 240 mg (2 mL) subcut ONCE 2 mL 0RF Coding Level of Care Code Est Pt Level 4 (29533) Diagnoses Migraine without aura and without status migrainosus, not intractable G43.009 Occipital neuralgia M54.81
[2025-03-08 08:40] VITALS: BP 110/70; PULSE 70; RESP 16; O2SAT 99; BMI 26.4
--- OUTSIDE RECORDS SUMMARY | 2025-03-08 08:45 | XMS_ITS | Continuity of Care Document ---
Author Organization [facility], Main Office Address [address] [place] [address] Care Team Providers Care Edi Developer Name Role Phone XIOMARA COOPER Primary Care Provider [phone] [facility] REPORTS ANALYSIS MANAGER Metal Wire Coating Operator ADALI BARROSO Neurologist COMMUNITY OIL HEAT TECHNICIAN Referring Provider Assessment No assessment recorded. Plan of Treatment Reminders Order Date Submit Date Provider Last Modified By Organization Details Last Modified Time Details Appointments None recorde d. Lab CBC w/ auto diff 2024 025 ANGELA [facility] (Centralized Electronic Ordering - All Locations), Patient Can Go To The Location Of Their Choice, [address] 5 22:05:58 Referral neurolo gist referra l - Cervico -occipi stephen headach es. Interes arely in occipit al block. 2024 025 ANGELA Not available 5 10:13:22 gynecol ogist referra l 2024 025 [email or web address] Not available 10:04:41 Procedures None recorde d. Surgeries None recorde d. Imaging MAMMO, screeni serafin ramírez al 2024 025 dru [facility], [address], [place], [address], 5 10:14:58 Medication Orders topiram ate 50 mg tablet 2024 025 ANGELA [id number], [address], [place], [address], 09:45:14 Patient TargetsNo targets recorded. Patient Instructions Encounter Date Encounter Id Patient Instructions Last Modified By Organization Details Last Modified Time 12/07/2024 [id number] mammogram: about this test Not available 12/07/2024 09:30:12 Generalized Anxiety Disorder: Care Instructions Not available 12/07/2024 12:26:44 Reason for Referral Metal Wire Coating Operator Referral for Ca ncer cervix screening status Referring Physician: Xiomara Cooper, Internal Medicine, Encounter Date: 12/07/2024 Neurologist Referral for Cer rebeca-occipital neuralgia Cervico-occipital headaches. Interested in occipital block. Referring Physician: Xiomara Cooper, Internal Medicine, Encounter Date: 12/07/2024 Results Created Date Observation Date Name Description Value Unit Range Abnormal Flag Note LastModifiedBy Organization Detail LastModifiedTime 12/08/1912/07/2024 CBC WITH DIFFE RENTI AL/PL ATELE T WBC 3.3 x10e3 /uL 3.4-10 .8 below low normal Not Available [facility] ([facility]) [address] [place], [address], 12/07/2024 22:05:58 12/08/19 25 12/07/2024 CBC WITH DIFFE RENTI AL/PL ATELE T RBC 3.73 x10e6 /uL 3.77-5 .28 below low normal Not Available [facility] ([facility]) [address] [place], [address], 12/07/2024 22:05:58 12/08/19 25 12/07/2024 CBC WITH DIFFE RENTI AL/PL ATELE T hemoglobin 11.9 g/dL 11.1-1 5.9 normal Not Available [facility] ([facility]) [address] [place], [address], 12/07/2024 22:05:58 12/08/19 25 12/07/2024 CBC WITH DIFFE RENTI AL/PL ATELE T hematocrit 36.2 % 34.0-4 6.6 normal Not Available [facility] ([facility]) [address] [facility], [place], [address], 12/07/2024 22:05:58 12/08/19 25 12/07/2024 CBC WITH DIFFE RENTI AL/PL ATELE T MCV 97 fL 79-97 normal Not Available [facility] ([facility]) [address] [place], [address], 12/07/2024 22:05:58 12/08/19 25 12/07/2024 CBC WITH DIFFE RENTI AL/PL ATELE T MCH 31.9 pg 26.6-3 3.0 normal Not Available [facility] ([facility]) [address] [place], [address], 12/07/2024 22:05:58 12/08/19 25 12/07/2024 CBC WITH DIFFE RENTI AL/PL ATELE T MCHC 32.9 g/dL 31.5-3 5.7 normal Not Available [facility] ([facility]) [address] [place], [address], 12/07/2024 22:05:58 12/08/19 25 12/07/2024 CBC WITH DIFFE RENTI AL/PL ATELE T RDW 12.1 % 11.7-1 5.4 Not Available [facility] ([facility]) [address] [place], [address], 12/07/2024 22:05:58 12/08/19 25 12/07/2024 CBC WITH DIFFE RENTI AL/PL ATELE T platelets 303 x10e3 /uL 150-45 0 normal Not Available [facility] ([facility]) [address] [place], [address], 12/07/2024 22:05:58 12/08/19 25 12/07/2024 CBC WITH DIFFE RENTI AL/PL ATELE T neutrophils 44 % not estab. normal Not Available [facility] ([facility]) [address] [facility], [place], [address], 12/07/2024 22:05:58 12/08/19 25 12/07/2024 CBC WITH DIFFE RENTI AL/PL ATELE T lymphs 45 % not estab. normal Not Available [facility] ([facility]) [address] [facility] [facility], [place], [address], 12/07/2024 22:05:58 12/08/19 25 12/07/2024 CBC WITH DIFFE RENTI AL/PL ATELE T monocytes 9 % not estab. normal Not Available [facility] ([facility]) [address] [facility], [place], [address], 12/07/2024 22:05:58 12/08/19 25 12/07/2024 CBC WITH DIFFE RENTI AL/PL ATELE T eos 1 % not estab. normal Not Available [facility] ([facility]) [address] [facility] [facility], [place], [address], 12/07/2024 22:05:58 12/08/19 25 12/07/2024 CBC WITH DIFFE RENTI AL/PL ATELE T basos 1 % not estab. normal Not Available [facility] ([facility]) [address] [place], [address], 12/07/2024 22:05:58 12/08/19 25 12/07/2024 CBC WITH DIFFE RENTI AL/PL ATELE T immature cells CHAIRMAN PRESIDENT AND CHIEF EXECUTIVE OFFICER Not Available [facility] ([facility]) [address] [place], [address], 12/07/2024 22:05:58 12/08/19 25 12/07/2024 CBC WITH DIFFE RENTI AL/PL ATELE T neutrophils (absolute) 1.5 x10e3 /uL 1.4-7. 0 normal Not Available [facility] ([facility]) [address] [facility] [facility], [place], [address], 12/07/2024 22:05:58 12/08/19 25 12/07/2024 CBC WITH DIFFE RENTI AL/PL ATELE T lymphs (absolute) 1.5 x10e3 /uL 0.7-3. 1 normal Not Available [facility] ([facility]) [address] [facility] [facility], [place], [address], 12/07/2024 22:05:58 12/08/19 25 12/07/2024 CBC WITH DIFFE RENTI AL/PL ATELE T monocytes(ab solute) 0.3 x10e3 /uL 0.1-0. 9 normal Not Available [facility] ([facility]) [address] [facility], [place], [address], 12/07/2024 22:05:58 12/08/19 25 12/07/2024 CBC WITH DIFFE RENTI AL/PL ATELE T eos (absolute) 0.0 x10e3 /uL 0.0-0. 4 normal Not Available [facility] ([facility]) [address] [facility], [place], [address], 12/07/2024 22:05:58 12/08/19 25 12/07/2024 CBC WITH DIFFE RENTI AL/PL ATELE T baso (absolute) 0.0 x10e3 /uL 0.0-0. 2 normal Not Available [facility] ([facility]) [address] [place], [address], 12/07/2024 22:05:58 12/08/19 25 12/07/2024 CBC WITH DIFFE RENTI AL/PL ATELE T immature granulocytes 0 % not estab. Not Available [facility] ([facility]) [address] [place], [address], 12/07/2024 22:05:58 12/08/19 12/07/2024 CBC WITH DIFFE RENTI AL/PL ATELE T immature grans (abs) 0.0 x10e3 /uL 0.0-0. 1 Not Available [facility] ([facility]) [address] [facility], [place], [address], 12/07/2024 22:05:58 12/08/1912/07/2024 CBC WITH DIFFE RENTI AL/PL ATELE T NRBC CHAIRMAN PRESIDENT AND CHIEF EXECUTIVE OFFICER Not Available [facility] ([facility]) [address] [facility], [place], [address], 12/07/2024 22:05:58 12/08/1912/07/2024 CBC WITH DIFFE RENTI AL/PL ATELE T hematology comments: CHAIRMAN PRESIDENT AND CHIEF EXECUTIVE OFFICER Not Available [facility] ([facility]) [address], [place], [address], 12/07/2024 22:05:58 Result Notes None recorded. Problems Name Problem SNOMED Code Status Onset Date Resolution Date Notes Provider Name and Address Organization Details Recorded Time Varicell a 85406283 Completed 200711/01/2019 Mira beckham [facility] 0 15:13:33 MMR vaccinat ion status 090375234 Completed 201111/01/2019 Mira beckham [facility] 0 15:13:12 Headache 50835288 Completed 201906/01/2019 Xiomara Cooper PA-C [address], [place], [address] , [facility] 0 10:48:34 Migraine 27363073 Active 2019 Xiomara Cooper PA-C [address] [address], [place], [address] , [facility] 0 10:48:50 Gastroes ophageal reflux disease 142821565 Completed 202111/23/2023 Xiomara Cooper PA-C [address], [place], [address] , [facility] 4 09:03:28 Mass of right breast 78376417091 976936 Active 2022 Melissa Woods [place], [facility] 3 17:06:33 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 Xiomara Cooper PA-C [address], [place], [address] , [facility] 4 09:10:18 Lymphade nitis 21078067 Active 2023 Joselyn Ramiro beckham, [facility] 4 10:06:32 Generali zed anxiety disorder 24526484 Active 2023 Xiomara Cooper PA-C [address], [place], [address] , [facility] 5 12:26:37 Cervico- occipita l neuralgi a 70019022 Active 2023 Xiomara Cooper PA-C [address], [place], [address] , [facility] 4 10:45:08 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 Xiomara Cooper PA-C [address], [place], [address] , [facility] 4 16:20:54 Problem Notes None recorded. Procedures Surgical History Date Name Laterality Status Provider Name and Address Organization Details Recorded Time 3 Most Recent Mammogram completed Nhung Villar [facility] 10/15/2022 08:58:41 9 Date of Last Pap Smear completed Sangeeta Layton MA [facility] 08/21/2021 16:12:06 No surg proc w/in 30 days completed Roberta ulloa MA [facility] 06/01/2019 10:31:18 Imaging Results None recorded. Procedure Notes None recorded. Medical Equipment None Reported. Allergies Allergen ID Allergen Name Allergen Category Reaction Reaction Severity Criticality Documentation Date Start Date Code Code System Note Provider Name and Address Organization Details Recorded Time 93901 latex environme nt,medica tion hives moderate Not available 06/01/20192002 66798 91 RxNorm MARIN Urban, [facility] 0 10:10:03 Medications Name Sig Start [...] Available Not Available Vitals Date Recorded Body height Body mass index (BMI) Body weight Heart rate Oxygen saturation Body temperature Systolic And Diastolic Provider Name and Address Organization Details Last Updated DateTime 5 156.21 cm 24.9 kg/m2 21845.3 8 g 57 /min 100 % 98.2 [degF] 96/63 mm[Hg] Catrachita Nelson MA [facility] 5 09:11:33 Social History Question Answer Notes LastModified by Organizat ion Details LastModified Time Tobacco Smoking Status [facility] 10:10:45 Is Blood Transfusion Acceptable In An Emergency? Yes [email or web address] Information not available 06/01/2019 What Is Your Level Of Caffeine Consumption? Moderate 1-2 Cups Coffee Daily Information not available 08/21/2021 How Much Tobacco Do You Chew? None [email or web address] Information not available 06/01/2019 Have You Been To An Area Known To Be High Risk For COVID-19? No Information not available 08/21/2021 What Type Of Diet Are You Following? REGULAR [email or web address] Information not available 06/01/2019 Which Illicit Or [...] Material From Your Doctor Or Pharmacy? Never Information not available 06/01/2019 Have You Served In The ? No [email or web address] Information not available 06/01/2019 Have You Or [...] How Many Children Do You Have? 2 Information not available 06/01/2019 Do You Use Protection During Sex? No [email or web address] Information not available 06/01/2019 Do You Use Your Seat Belt Or Car Seat Routinely? Yes Information not available 08/21/2021 Seat Belts Used Routinely Yes Information not available 08/21/2021 Are You Sexually Active? Yes [email or web address] Information not available 06/01/2019 Smoke Alarm In Home Yes Information not available 08/21/2021 Do You Have Smoke And Carbon Monoxide Detectors In Your Home? Yes Information not available 08/21/2021 At What Age Did You Start Smoking Tobacco? 1 [email or web address] Information not available 06/01/2019 Are You Passively Exposed To Smoke? No Information not available 06/01/2019 How Much Tobacco Do You Smoke? No Information not available 06/01/2019 Do You Use Sunscreen Routinely? Yes [email or web address] Information not available 06/01/2019 How Many Years Have You Smoked Tobacco? 0 [email or web address] Information not available 06/01/2019 Sex: Unknown Functional Status Question Answer Note LastModified by Organizat ion Details LastModified Time Do you use any illicit or recreational drugs? No Information not available 08/21/2021 Do you or have you ever used any other forms of tobacco or nicotine? No Information not available 08/21/2021 What is your level of alcohol consumption? Occasional [email or web address] Information not available 06/01/2019 Do you or have you ever used smokeless tobacco? Never used smokeless tobacco [email or web address] Information not available 06/01/2019 Are you currently employed? Yes [email or web address] Information not available 06/01/2019 Are you able to walk independently without assistance or assistive devices? [email or web address] Information not available 08/21/2021 Are you able to care for yourself independently? 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 Never used electronic cigarettes Information not available 08/21/2021 What is your exercise level? Moderate [email or web address] Information not available 06/01/2019 Mental Status None recorded. Family History Relationship Description Onset Age of this Age Resolved Age Notes LastModified by Organization Details LastModified Time Mother Immunodefici ency disorder 45 Not available 05/31 10:10:18 Mother Migraine [email or web address] Not availab le 06/01/2019 10:10:18 Mother Lupus erythematosu s 45 [email or web address] Not available 08/21 16:02:01 Medical History Condition Response Other N Gout N Kidney Stones N Blood Diseases N Hyperthyroidism N Breast Cancer N Hypothyroidism N Lung Disease N COPD N Depression N Defects or Inherited Disease N Anesthesia Complications N Headaches/Migraines N Varicose Veins N Anxiety Disorder N Obesity N Vision or Eye Problems N Arthritis N Head Injury/Concussion N Infertility N Polyps N Congenital Anomalies N Acid Reflux (GERD) [...] adult 07/01/18 99 completed Mira Saul null, [facility] 11/01/2019 15:13:56 Hep B, adult 03/04/19 98 completed Mira Saul null, [facility] 11/01/2019 15:14:06 Hep B, adult 01/30/19 98 completed Mira Saul null, [facility] 11/01/2019 15:14:15 Influenza, split virus, quadrivalent, preservative 12/27/19 19 completed Mira Saul null, [facility] 11/01/2019 15:14:44 MMR 10/18/19 12 completed Mira Saul null, [facility] 11/01/2019 15:15:19 varicella 08/09/19 08 completed Mira Saul null, [facility] 11/01/2019 15:15:38 COVID-19, mRNA, LNP-S, PF, 100 mcg/0.5mL dose or 50 mcg/0.25mL dose 03/17/20 20 completed MARIN Osborn, [facility] 08/21/2021 16:17:41 COVID-19, mRNA, LNP-S, PF, 100 mcg/0.5mL dose or 50 mcg/0.25mL dose 04/14/19 21 completed MARIN Osborn, [facility] 08/21/2021 16:17:41 Tdap 07/29/19 21 completed MARIN Osborn, [facility] 08/21/2021 16:17:41 COVID-19, mRNA, LNP-S, PF, 100 mcg/0.5mL dose or 50 mcg/0.25mL dose 01/21/20 21 completed MARIN Osborn, [facility] 08/21/2021 16:17:41 Influenza, split virus, quadrivalent, PF 12/22/19 20 completed MARIN Osborn, [facility] 08/21/2021 16:17:41 Influenza, MDCK, quadrivalent, PF 12/27/19 18 completed MARIN Osborn, [facility] 08/21/2021 16:17:41 Influenza, split virus, quadrivalent, PF 01/06/20 21 completed MARIN Osborn, [facility] 08/21/2021 16:17:41 Influenza, split virus, trivalent, preservative 01/19/20 16 completed MARIN Osborn, [facility] 08/21/2021 16:17:41 Influenza, split virus, quadrivalent, preservative 02/08/20 17 completed MARIN Osborn, [facility] 08/21/2021 16:17:41 Tdap 08/14/19 17 completed MARIN Osborn, [facility] 08/21/2021 16:17:41 influenza, unspecified formulation 12/29/19 24 completed MARIN Knight, [facility] 12/07/2024 09:03:18 COVID-19, mRNA, LNP-S, PF, juan-sucrose, 30 mcg/0.3 mL 02/04/20 23 completed Not Available [facility] 12/07/2024 09:00:24 Influenza, split virus, quadrivalent, PF 01/06/20 23 completed Not Available [facility] 12/07/2024 09:00:24 Influenza, split virus, quadrivalent, PF 06/01/19 20 cancelled patient objection Roberta dennis, MARIN beckham, [facility] 06/01/2019 10:31:58 Influenza, split virus, trivalent, PF 12/08/19 25 completed MARIN Knight, [facility] 12/07/2024 09:13:04 Past Encounters Encounter ID Performer Location Encounter Start Date Encounter Closed Date Diagnosis/Indication Diagnosis SNOMED-CT Code Diagnosis ICD10 Code Diagnosis IMO Codes Diagnosis Note [id number] Gino Moulton MD Main Office [address] [facility] [place] [address] 12/07/2024 08:58:53 12/07/2024 10:04:41 Adult health examination 341225212 Z00.00 Vaccines are UTD. Pt sees SUEDING AND BUFFING MACHINE OPERATOR yearly. Needs infl uenza immunization 571473112 Z23 19 YEARS AND OLDER ONLY Generalize d anxiety disorder 19988237 F41.1 604354 Moderately increased ADRY score, but pt. reports sleeping well and manages it with therapy monthly. Not interested in pharmacolo gic management . Cervico-oc cipital neuralgia 16245896 M54.81 recommend to see neurologis t for occipital block injection. pt had relief after injection in the past, but neurologis t left that she saw at [facility]. Migraine 63554013 G43.00 9 Has frequent ,up to 3 times per week, migraines. Pt takes Nurtec ODT for rescue. Tried amitriptyl ine 10 mg last year with multiple side effects , had to discontinu e. Seen by [facility] neurologis t , but she left before work up was completed. Pt had one occipital nerve injection which provided relief for over 6 weeks.missy m to return to neurology for injections . Start topiramate 25 mg daily, increase to 50 mg after 2-4 weeks if tolerated. 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 [facility] [id number] 3 Fam Epps [id number] Elba Epps Notes Date Note Type Note Provider Name and Address Organization Details Recorded Time 12/07/2024 text/html Generic HPI TemplateReported by [email or web address] year old female for annual wellness visit..Sees SUEDING AND BUFFING MACHINE OPERATOR yearlyPapSmear always abnormal, so gets annual colposcopy at [facility].Mammogram last in 2022. Not due for regular [...] She is going to therapy monthly in [place].ROS as noted in the HPI Xiomara Cooper PA-C [address] [address], [place], [address], [facility] 12/07/2024 12:28:41 OBGyn Episode No OBEpisode recorded.
--- OUTSIDE RECORDS SUMMARY | 2025-03-08 08:45 | XMS_ITS | Data Portability ---
Author Organization [facility], Main Office Address [address] [place] [address] Care Team Providers Care [employer] Music Teacher Name Role Phone XIOMARA COOPER Primary Care Provider [facility] SALESPERSON SURGICAL APPLIANCES Supervisor Pig Machine ADALI BARROSO Neurologist [facility] [employer]BER SECURITY Referring Provider Assessment No assessment recorded. Plan [...] Go To The Location Of Their Choice, [address] 4 13:00:05 TSH, ultra- sensit debi, serum 2023 024 ANGELA [facility] (Centralized Electronic Ordering - All Locations), Patient Can Go To The Location Of Their Choice, [address] 4 06:09:21 lipid panel, serum 2023 024 ANGELA [facility] (Centralized [facility] Ordering - All Locations), Patient Can Go To The Location Of Their Choice, [id number] 4 06:09:21 CMP, serum or plasma 2023 024 ANGELA [facility] (Centralized Electronic Ordering - All Locations), Patient Can Go To The Location Of Their Choice, [address] 4 06:09:20 CBC w/ auto diff 2023 024 ANGELA [facility] (Centralized Electronic Ordering - All Locations), Patient Can Go To The Location Of Their Choice, [address] 4 06:09:20 Referral neurol ogist referr al - Cervic o-occi pital headac hes. Intere sted in occipi stephen block. 2024 025 ANGELA Not available 5 10:13:22 gyneco logist referr al 2024 025 [email or web address] Not available 10:04:41 gyneco logist referr al 2023 024 [email or web address] Not available 11:05:50 Procedures None record ed. Surgeries None record ed. Imaging MAMMO, screen ing, bilate ral 2024 025 [email or web address], [address], [place], [address], 5 10:14:58 Medication Orders topira mate 50 mg tablet 2024 025 [place], [address] [place] [address], [address], 5 09:45:14 topira mate 50 mg tablet 2023 024 [facility], [address] [place] [address], [address], 4 10:29:59 Patient TargetsNo targets recorded. Patient Instructions Encounter Date Encounter Id Patient Instructions Last Modified By Organization Details Last Modified Time 08/21/2021 [id number] migraine headach e: care instructions Not available 08/21/2021 16:59:53 gastroesophageal reflux disease (GERD): care instructions Not available 08/21/2021 17:00:20 11/23/2023 [id number] high cholesterol : care instructions Not available 11/23/2023 09:07:17 When You Want to Lose Weight: Care Instructions Not available 11/23/2023 09:03:49 01/20/2024 [id number] learning about h igh white blood cell counts Not available 01/20/2024 12:59:52 12/07/2024 [id number] mammogram: about this test Not available 12/07/2024 09:30:12 Generalized Anxi ety Disorder: Care Instructions Not available 12/07/2024 12:26:44 Reason for Referral Supervisor Pig Machine Referral for Sc reening for malignant neoplasm of cervix Referring Physician: Xiomara Cooper, Internal Medicine, Encounter Date: 11/23/2023 Supervisor Pig Machine Referral for Ca ncer cervix screening status [...] .8 below low normal Not Available [facility] ([facility]) [address] [place], [address], 12/10/2023 06:09:19 12/09/19 24 12/10/2023 CBC WITH DIFFE RENTI AL/PL ATELE T RBC 3.68 x10e6 /uL 3.77-5 .28 below low normal Not Available [facility] ([facility]) [address] [place], [address], 12/10/2023 06:09:19 12/09/19 24 12/10/2023 CBC WITH DIFFE RENTI AL/PL ATELE T hemoglobin 11.7 g/dL 11.1-1 5.9 normal Not Available [facility] ([facility]) [address] [place], [address], 12/10/2023 06:09:19 12/09/19 24 12/10/2023 CBC WITH DIFFE RENTI AL/PL ATELE T hematocrit 35.8 % 34.0-4 6.6 normal Not Available [facility] ([facility]) [address] [place], [address], 12/10/2023 06:09:19 12/09/19 24 12/10/2023 CBC WITH DIFFE RENTI AL/PL ATELE T MCV 97 fL 79-97 normal Not Available [facility] ([facility]) [address] [place], [address], 12/10/2023 06:09:19 12/09/19 24 12/10/2023 CBC WITH DIFFE RENTI AL/PL ATELE T MCH 31.8 pg 26.6-3 3.0 normal Not Available [facility] ([facility]) [address] [place], [address], 12/10/2023 06:09:19 12/09/19 24 12/10/2023 CBC WITH DIFFE RENTI AL/PL ATELE T MCHC 32.7 g/dL 31.5-3 5.7 normal Not Available [facility] ([facility]) [address] [place], [address], 12/10/2023 06:09:19 12/09/19 24 12/10/2023 CBC WITH DIFFE RENTI AL/PL ATELE T RDW 12.3 % 11.7-1 5.4 Not Available [facility] ([facility]) [address] [place], [address], 12/10/2023 06:09:19 12/09/19 24 12/10/2023 CBC WITH DIFFE RENTI AL/PL ATELE T platelets 300 x10e3 /uL 150-45 0 normal Not Available [facility] ([facility]) [address] [facility], [place], [address], 12/10/2023 06:09:19 12/09/19 24 12/10/2023 CBC WITH DIFFE RENTI AL/PL ATELE T neutrophils 41 % not estab. normal Not Available [facility] ([facility]) [address] [facility], [place], [address], 12/10/2023 06:09:19 12/09/19 24 12/10/2023 CBC WITH DIFFE RENTI AL/PL ATELE T lymphs 48 % not estab. normal Not Available [facility] ([facility]) [address] [facility], [place], [address], 12/10/2023 06:09:19 12/09/19 24 12/10/2023 CBC WITH DIFFE RENTI AL/PL ATELE T monocytes 9 % not estab. normal Not Available [facility] ([facility]) [address] [facility], [place], [address], 12/10/2023 06:09:19 12/09/19 24 12/10/2023 CBC WITH DIFFE RENTI AL/PL ATELE T eos 1 % not estab. normal Not Available [facility] ([facility]) [address] [place], [address], 12/10/2023 06:09:19 12/09/19 24 12/10/2023 CBC WITH DIFFE RENTI AL/PL ATELE T basos 1 % not estab. normal Not Available [facility] ([facility]) [address] [place], [address], 12/10/2023 06:09:19 12/09/19 24 12/10/2023 CBC WITH DIFFE RENTI AL/PL ATELE T immature cells CENTRIFUGAL SUPERVISOR Not Available [facility] ([facility]) [address] [place], [address], 12/10/2023 06:09:19 12/09/19 24 12/10/2023 CBC WITH DIFFE RENTI AL/PL ATELE T neutrophils (absolute) 1.3 x10e3 /uL 1.4-7. 0 below low normal Not Available [facility] ([facility]) [address] [facility], [place], [address], 12/10/2023 06:09:19 12/09/19 24 12/10/2023 CBC WITH DIFFE RENTI AL/PL ATELE T lymphs (absolute) 1.6 x10e3 /uL 0.7-3. 1 normal Not Available [facility] ([facility]) [address] [place], [address], 12/10/2023 06:09:19 12/09/19 24 12/10/2023 CBC WITH DIFFE RENTI AL/PL ATELE T monocytes(ab solute) 0.3 x10e3 /uL 0.1-0. 9 normal Not Available [facility] ([facility]) [address] [place], [address], 12/10/2023 06:09:19 12/09/19 24 12/10/2023 CBC WITH DIFFE RENTI AL/PL ATELE T eos (absolute) 0.0 x10e3 /uL 0.0-0. 4 normal Not Available [facility] ([facility]) [address] [place], [address], 12/10/2023 06:09:19 12/09/19 24 12/10/2023 CBC WITH DIFFE RENTI AL/PL ATELE T baso (absolute) 0.0 x10e3 /uL 0.0-0. 2 normal Not Available [facility] ([facility]) [address] [place], [address], 12/10/2023 06:09:19 12/09/19 24 12/10/2023 CBC WITH DIFFE RENTI AL/PL ATELE T immature granulocytes 0 % not estab. Not Available [facility] ([facility]) [address] [facility], [place], [address], 12/10/2023 06:09:19 12/09/19 24 12/10/2023 CBC WITH DIFFE RENTI AL/PL ATELE T immature grans (abs) 0.0 x10e3 /uL 0.0-0. 1 Not Available [facility] ([facility]) [address] [facility], [place], [address], 12/10/2023 06:09:19 12/09/19 24 12/10/2023 CBC WITH DIFFE RENTI AL/PL ATELE T NRBC CENTRIFUGAL SUPERVISOR Not Available [facility] ([facility]) [address] [facility], [place], [address], 12/10/2023 06:09:19 12/09/19 24 12/10/2023 CBC WITH DIFFE RENTI AL/PL ATELE T hematology comments: CENTRIFUGAL SUPERVISOR Not Available [facility] ([facility]) [address] [facility], [place], [address], 12/10/2023 06:09:19 12/09/19 24 12/10/2023 COMP. METAB OLIC PANEL (14) glucose 86 mg/dL 70-99 normal Not Available [facility] ([facility]) [address] [facility], [place], [address], 12/10/2023 06:09:20 12/09/19 24 12/10/2023 COMP. METAB OLIC PANEL (14) BUN 11 mg/dL 6-20 normal Not Available [facility] ([facility]) [address] [place], [address], 12/10/2023 06:09:20 12/09/19 24 12/10/2023 COMP. METAB OLIC PANEL (14) creatinine 0.85 mg/dL 0.57-1 .00 normal Not Available [facility] ([facility]) [address] [place], [address], 12/10/2023 06:09:20 12/09/19 24 12/10/2023 COMP. METAB OLIC PANEL (14) eGFR 90 mL/mi n/1.7 3 >59 normal Not Available [facility] ([facility]) [address] [place], [address], 12/10/2023 06:09:20 12/09/19 24 12/10/2023 COMP. METAB OLIC PANEL (14) BUN/creatini ne ratio 13 9-23 normal Not Available [facility] ([facility]) [address] [place], [address], 12/10/2023 06:09:20 12/09/19 24 12/10/2023 COMP. METAB OLIC PANEL (14) sodium 138 mmol/ L 134-14 4 normal Not Available [facility] ([facility]) [address] [place], [address], 12/10/2023 06:09:20 12/09/19 24 12/10/2023 COMP. METAB OLIC PANEL (14) potassium 4.1 mmol/ L 3.5-5. 2 normal Not Available [facility] ([facility]) [address] [place], [address], 12/10/2023 06:09:20 12/09/19 24 12/10/2023 COMP. METAB OLIC PANEL (14) chloride 102 mmol/ L 96-106 normal Not Available [facility] ([facility]) [address] [place], [address], 12/10/2023 06:09:20 12/09/19 24 12/10/2023 COMP. METAB OLIC PANEL (14) carbon dioxide, total 22 mmol/ L 20-29 normal Not Available [facility] ([facility]) [address] [place], [address], 12/10/2023 06:09:20 12/09/19 24 12/10/2023 COMP. METAB OLIC PANEL (14) calcium 9.2 mg/dL 8.7-10 .2 normal Not Available [facility] ([facility]) [address] [place], [address], 12/10/2023 06:09:20 12/09/19 24 12/10/2023 COMP. METAB OLIC PANEL (14) protein, total 6.8 g/dL 6.0-8. 5 normal Not Available [facility] ([facility]) [address] [place], [address], 12/10/2023 06:09:20 12/09/19 24 12/10/2023 COMP. METAB OLIC PANEL (14) albumin 4.6 g/dL 3.9-4. 9 normal Not Available [facility] ([facility]) [address] [place], [address], 12/10/2023 06:09:20 12/09/19 24 12/10/2023 COMP. METAB OLIC PANEL (14) globulin, total 2.2 g/dL 1.5-4. 5 Not Available [facility] ([facility]) [address] [facility] [place], [address], 12/10/2023 06:09:20 12/09/19 24 12/10/2023 COMP. METAB OLIC PANEL (14) bilirubin, total 0.6 mg/dL 0.0-1. 2 normal Not Available [facility] ([facility]) [address] [place], [address], 12/10/2023 06:09:20 12/09/19 24 12/10/2023 COMP. METAB OLIC PANEL (14) alkaline phosphatase 31 IU/L 44-121 below low normal Not Available [facility] ([facility]) [address] [facility] [place], [address], 12/10/2023 06:09:20 12/09/19 24 12/10/2023 COMP. METAB OLIC PANEL (14) AST (SGOT) 16 IU/L 0-40 normal Not Available [facility] ([facility]) [address] [facility] [place], [address], 12/10/2023 06:09:20 12/09/19 24 12/10/2023 COMP. METAB OLIC PANEL (14) ALT (SGPT) 13 IU/L 0-32 normal Not Available [facility] ([facility]) [address] [facility] [place], [address], 12/10/2023 06:09:20 12/09/19 24 12/10/2023 LIPID PANEL cholesterol, total 145 mg/dL 100-19 9 normal Not Available [facility] ([facility]) [address] [facility] [place], [address], 12/10/2023 06:09:21 12/09/19 24 12/10/2023 LIPID PANEL triglyceride s 38 mg/dL 0-149 normal Not Available [facility] ([facility]) [address] [facility] [place], [address], 12/10/2023 06:09:21 12/09/19 24 12/10/2023 LIPID PANEL HDL cholesterol 69 mg/dL >39 normal Not Available [facility] ([facility]) [address] [facility] [place], [address], 12/10/2023 06:09:21 12/09/19 24 12/10/2023 LIPID PANEL VLDL cholesterol latoya 9 mg/dL 5-40 Not Available [facility] ([facility]) [address] [facility] [place], [address], 12/10/2023 06:09:21 12/09/19 24 12/10/2023 LIPID PANEL LDL chol calc ([facility]) 67 mg/dL 0-99 Not Available [facility] ([facility]) [address] [place], [address], 12/10/2023 06:09:21 12/09/19 24 12/10/2023 LIPID PANEL LDL calc comment: CENTRIFUGAL SUPERVISOR Not Available [facility] ([facility]) [address] [place], [address], 12/10/2023 06:09:21 12/09/19 24 12/10/2023 TSH TSH 1.220 uIU/m L 0.450- 4.500 normal Not Available [facility] ([facility]) [address] [place], [address], 12/10/2023 06:09:21 12/08/19 25 12/07/2024 CBC WITH DIFFE RENTI AL/PL ATELE T WBC 3.3 x10e3 /uL 3.4-10 .8 below low normal Not Available [facility] ([facility]) [address] [place], [address], 12/07/2024 22:05:58 12/08/19 25 12/07/2024 CBC WITH DIFFE RENTI AL/PL ATELE T RBC 3.73 x10e6 /uL 3.77-5 .28 below low normal Not Available [facility] ([facility]) [address] [place], [address], 12/07/2024 22:05:58 12/08/19 25 12/07/2024 CBC WITH DIFFE RENTI AL/PL ATELE T hemoglobin 11.9 g/dL 11.1-1 5.9 normal Not Available [facility] ([facility]) [address] [place], [address], 12/07/2024 22:05:58 12/08/19 25 12/07/2024 CBC WITH DIFFE RENTI AL/PL ATELE T hematocrit 36.2 % 34.0-4 6.6 normal Not Available [facility] ([facility]) [address] [place], [address], 12/07/2024 22:05:58 12/08/19 25 12/07/2024 CBC WITH DIFFE RENTI AL/PL ATELE T MCV 97 fL 79-97 normal Not Available [facility] ([facility]) [address] [place], [address], 12/07/2024 22:05:58 12/08/19 25 12/07/2024 CBC WITH DIFFE RENTI AL/PL ATELE T MCH 31.9 pg 26.6-3 3.0 normal Not Available [facility] ([facility]) [address] [place], [address], 12/07/2024 22:05:58 12/08/19 25 12/07/2024 CBC WITH DIFFE RENTI AL/PL ATELE T MCHC 32.9 g/dL 31.5-3 5.7 normal Not Available [facility] ([facility]) [address] [place], [address], 12/07/2024 22:05:58 12/08/19 25 12/07/2024 CBC WITH DIFFE RENTI AL/PL ATELE T RDW 12.1 % 11.7-1 5.4 Not Available [facility] ([facility]) [address] [place], [address], 12/07/2024 22:05:58 12/08/19 25 12/07/2024 CBC WITH DIFFE RENTI AL/PL ATELE T platelets 303 x10e3 /uL 150-45 0 normal Not Available [facility] ([facility]) [address] [place], [address], 12/07/2024 22:05:58 12/08/19 25 12/07/2024 CBC WITH DIFFE RENTI AL/PL ATELE T neutrophils 44 % not estab. normal Not Available [facility] ([facility]) [address] [place], [address], 12/07/2024 22:05:58 12/08/19 25 12/07/2024 CBC WITH DIFFE RENTI AL/PL ATELE T lymphs 45 % not estab. normal Not Available [facility] ([facility]) [address] [place], [address], 12/07/2024 22:05:58 12/08/19 25 12/07/2024 CBC WITH DIFFE RENTI AL/PL ATELE T monocytes 9 % not estab. normal Not Available [facility] ([facility]) [address] [place], [address], 12/07/2024 22:05:58 12/08/19 25 12/07/2024 CBC WITH DIFFE RENTI AL/PL ATELE T eos 1 % not estab. normal Not Available [facility] ([facility]) [address] [place], [address], 12/07/2024 22:05:58 12/08/19 25 12/07/2024 CBC WITH DIFFE RENTI AL/PL ATELE T basos 1 % not estab. normal Not Available [facility] ([facility]) [address] [place], [address], 12/07/2024 22:05:58 12/08/19 25 12/07/2024 CBC WITH DIFFE RENTI AL/PL ATELE T immature cells CENTRIFUGAL SUPERVISOR Not Available [facility] ([facility]) [address] [place], [address], 12/07/2024 22:05:58 12/08/19 25 12/07/2024 CBC WITH DIFFE RENTI AL/PL ATELE T neutrophils (absolute) 1.5 x10e3 /uL 1.4-7. 0 normal Not Available [facility] ([facility]) [address] [place], [address], 12/07/2024 22:05:58 12/08/19 25 12/07/2024 CBC WITH DIFFE RENTI AL/PL ATELE T lymphs (absolute) 1.5 x10e3 /uL 0.7-3. 1 normal Not Available [facility] ([facility]) [address] [facility], [place], [address], 12/07/2024 22:05:58 12/08/19 25 12/07/2024 CBC WITH DIFFE RENTI AL/PL ATELE T monocytes(ab solute) 0.3 x10e3 /uL 0.1-0. 9 normal Not Available [facility] ([facility]) [address] [facility], [place], [address], 12/07/2024 22:05:58 12/08/19 25 12/07/2024 CBC WITH DIFFE RENTI AL/PL ATELE T eos (absolute) 0.0 x10e3 /uL 0.0-0. 4 normal Not Available [facility] ([facility]) [address] [facility], [place], [address], 12/07/2024 22:05:58 12/08/19 25 12/07/2024 CBC WITH DIFFE RENTI AL/PL ATELE T baso (absolute) 0.0 x10e3 /uL 0.0-0. 2 normal Not Available [facility] ([facility]) [address] [facility], [place], [address], 12/07/2024 22:05:58 12/08/19 25 12/07/2024 CBC WITH DIFFE RENTI AL/PL ATELE T immature granulocytes 0 % not estab. Not Available [facility] ([facility]) [address] [place], [address], 12/07/2024 22:05:58 12/08/19 25 12/07/2024 CBC WITH DIFFE RENTI AL/PL ATELE T immature grans (abs) 0.0 x10e3 /uL 0.0-0. 1 Not Available [facility] ([facility]) [address] [place], [address], 12/07/2024 22:05:58 12/08/19 25 12/07/2024 CBC WITH DIFFE RENTI AL/PL ATELE T NRBC CENTRIFUGAL SUPERVISOR Not Available [facility] ([facility]) [address] [facility], [place], [address], 12/07/2024 22:05:58 12/08/19 25 12/07/2024 CBC WITH DIFFE RENTI AL/PL ATELE T hematology comments: CENTRIFUGAL SUPERVISOR Not Available [facility] ([facility]) [address] [facility], [place], [address], 12/07/2024 22:05:58 10/15/19 23 10/14/2022 US, georgina isaac, limit ed PROCED URE: MM Digita l [...] Lay letter mailed to peymansocorro poncho WSN: [id number] Orderi ng Physic ritchie: Cayetano Cooper Dictat ed By: Osmany Perales MD Dictat ed Date/T ca: 9:07 am Review ed By: Osmany Perales MD Signed By: Osmany Perales MD Signed Date/T ca: 9:07 am Transc ribed By: VIVIEN Transc ribed Date/T ca: 8:51 am Patisocorro t Class: Outpat ient [id number] [facility] ([facility]) [address], [place], [address], 11/23/2023 08:44:35 10/15/[birth year]10/14/2022 mm digit al mammo [...] Lay letter mailed to jaspal isaac WSN: [id number] Orderi ng Physic ritchie: Cayetano Cooper Dictat ed By: Osmany Perales MD Dictat ed Date/T ca: 9:07 am Review ed By: Osmany Perales MD Signed By: Osmany Perales MD Signed Date/T ca: 9:07 am Transc ribed By: VIVIEN Transc riptio n Date/T ca: 8:51 am Birads : Patien t Class: Outpat ient [id number] [facility] ([facility]) [address] [facility], [place], [address], 11/23/2023 08:44:35 10/15/1910/14/2022 MAMMO , scree etelvina, bilat eral No observ ation record ed. [email or web address] [facility] [address] [facility], [place], [address], 11/23/2023 08:44:35 Result Notes None recorded. Problems Name Problem SNOMED Code Status Onset Date Resolution Date Notes Provider Name and Address Organization Details Recorded Time Varicell a 59858546 Completed 200711/01/2019 Mira beckham [facility] 0 15:13:33 MMR vaccinat ion status 270136303 Completed 201111/01/2019 Mira beckham [facility] 0 15:13:12 Headache 87614769 Completed 201906/01/2019 Xiomara Cooper PA-C [address] [facility] [address], [place], [address] , [facility] 0 10:48:34 Migraine 80636323 Active 2019 Xiomara Cooper PA-C [address] [facility] [address], [place], [address] , [facility] 0 10:48:50 Gastroes ophageal reflux disease 557230192 Completed 202111/23/2023 Xiomara Cooper PA-C [address] [facility] [address], [place], [address] , [facility] 4 09:03:28 Mass of right breast 38387511890 762947 Active 2022 Melissa Peggy beckham, [facility] 3 17:06:33 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 Active 2023 Xiomara Cooper PA-C [address] [facility] [address], [place], [address] , [facility] 4 09:10:18 Lymphade nitis 11180512 Active 2023 Joselyn Ramiro beckham, [facility] 4 10:06:32 Generali zed anxiety disorder 54142521 Active 2023 Xiomara Cooper PA-C [address] [facility] [address], [place], [address] , [facility] 5 12:26:37 Cervico- occipita l neuralgi a 20394136 Active 2023 Xiomara Cooper PA-C [address] [facility] [address], [place], [address] , [facility] 4 10:45:08 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 Xiomara Cooper PA-C [address] [facility] [address], [place], [address] , [facility] 4 16:20:54 Problem Notes None recorded. Procedures Surgical History Date Name Laterality Status Provider Name and Address Organization Details Recorded Time 3 Most Recent Mammogram completed Nhung Villar [facility] 10/15/2022 08:58:41 9 Date of Last Pap Smear completed Sangeeta Layton MA [facility] 08/21/2021 16:12:06 No surg proc w/in 30 days completed Roberta ulloa MA [facility] 06/01/2019 10:31:18 Imaging Results None recorded. Procedure Notes None recorded. Medical Equipment None Reported. Allergies Allergen ID Allergen Name Allergen Category Reaction Reaction Severity Criticality Documentation Date Start Date Code Code System Note Provider Name and Address Organization Details Recorded Time 77220 latex environme nt,medica tion hives moderate Not available 06/01/20192002 24702 91 RxNorm MARIN Urban, [facility] 0 10:10:03 Medications Name Sig Start [...] kg/m2 160.02 cm Xiomara Cooper PA-C [address] [address], [place], [address], [facility] 08/21/2021 16:23:49 Date Recorded Body weight Heart rate Oxygen saturation Body temperature Systolic And Diastolic Provider Name and Address Organization Details Last Updated DateTime 2 85849.2 5 g 76 /min 99 % 97.88 [degF] 104/72 mm[Hg] S[facility]ton [facility] 2 16:09:29 Date Recorded Body weight Body mass index (BMI) Body height Heart rate Oxygen saturation Body temperature Systolic And Diastolic Provider Name and Address Organization Details Last Updated DateTime 3 14103.2 3 g 22.5 kg/m2 160.02 cm 74 /min 96 % 98.7 [degF] 107/69 mm[Hg] [facility] 3 15:56:48 Date Recorded Body height Body mass index (BMI) Body weight Heart rate Oxygen saturation Body temperature Systolic And Diastolic Provider Name and Address Organization Details Last Updated DateTime 4 156.21 cm 25.3 kg/m2 01496.2 6 g 64 /min 100 % 98.3 [degF] 103/64 mm[Hg] Suzan Hampton LPN [facility] 4 08:37:38 Date Recorded Body height Body mass index (BMI) Body weight Heart rate Oxygen saturation Body temperature Systolic And Diastolic Provider Name and Address Organization Details Last Updated DateTime 5 156.21 cm 24.9 kg/m2 21457.3 8 g 57 /min 100 % 98.2 [degF] 96/63 mm[Hg] Catrachita Nelson MA [facility] 5 09:11:33 Date Recorded Body height Body mass index (BMI) Body weight Heart rate Oxygen saturation Body temperature Systolic And Diastolic Provider Name and Address Organization Details Last Updated DateTime 4 156.21 cm 25.7 kg/m2 55324.1 5 g 61 /min 100 % 98.3 [degF] 114/75 mm[Hg] Kizzy Dupree MA [facility] 4 10:31:04 Social History Question Answer Notes LastModified by Organizat ion Details LastModified Time Tobacco Smoking Status [facility] 10:10:45 Is Blood Transfusion Acceptable In An Emergency? Yes [email or web address] Information not available 06/01/2019 What Is Your Level Of Caffeine Consumption? Moderate 1-2 Cups Coffee Daily Information not available 08/21/2021 How Much Tobacco Do You Chew? None [email or web address] Information not available 06/01/2019 Have You Been To An Area Known To Be High Risk For COVID-19? No Information not available 08/21/2021 What Type Of Diet Are You Following? REGULAR [email or web address] Information not available 06/01/2019 Which Illicit Or Recreational Drugs Have You Used? None Information not available 08/20/2020 Live Alone Or With Others? With Others And 1 Daughter And 1 Son [email or web address] Information not available 08/25/2022 Do You Take Precautions To Prevent Distracted Driving? Yes Information not available 08/21/2021 How Often Do You Need To Have Someone Help You When You Read Instructions, Pamphlets, Or Other Written Material From Your Doctor Or Pharmacy? Never [email or web address] Information not available 06/01/2019 Have You Served In The ? No [email or web address] Information not available 06/01/2019 Have You Or [...] How Many Children Do You Have? 2 [email or web address] Information not available 06/01/2019 Do You Use Protection During Sex? No [email or web address] Information not available 06/01/2019 Do You Use Your Seat Belt Or Car Seat Routinely? Yes Information not available 08/21/2021 Seat Belts Used Routinely Yes Information not available 08/21/2021 Are You Sexually Active? Yes [email or web address] Information not available 06/01/2019 Smoke Alarm In Home Yes Information not available 08/21/2021 Do You Have Smoke And Carbon Monoxide Detectors In Your Home? Yes Information not available 08/21/2021 At What Age Did You Start Smoking Tobacco? 0 Information not available 06/01/2019 Are You Passively Exposed To Smoke? No [email or web address] Information not available 06/01/2019 How Much Tobacco Do You Smoke? No [email or web address] Information not available 06/01/2019 Do You Use Sunscreen Routinely? Yes Information not available 06/01/2019 How Many Years Have You Smoked Tobacco? 0 [email or web address] Information not available 06/01/2019 Sex: Unknown Functional Status Question Answer Note LastModified by Organizat ion Details LastModified Time Do you use any illicit or recreational drugs? No Information not available 08/21/2021 Do you or have you ever used any other forms of tobacco or nicotine? No Information not available 08/21/2021 What is your level of alcohol consumption? Occasional [email or web address] Information not available 06/01/2019 Do you or have you ever used smokeless tobacco? Never used smokeless tobacco [email or web address] Information not available 06/01/2019 Are you currently employed? Yes [email or web address] Information not available 06/01/2019 Are you able to walk independently without assistance or assistive devices? [email or web address] Information not available 08/21/2021 Are you able to care for yourself independently? 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 Never used electronic cigarettes Information not available 08/21/2021 What is your exercise level? Moderate [email or web address] Information not available 06/01/2019 Mental Status None recorded. Family History Relationship Description Onset Age of this Age Resolved Age Notes LastModified by Organization Details LastModified Time Mother Immunodefici ency disorder 45 [email or web address] Not available 05/31 10:10:18 Mother Migraine [email or web address] Not availab le 06/01/2019 10:10:18 Mother Lupus [email or web address] s 45 Not available 08/21 16:02:01 Medical History Condition [...] adult 07/01/18 99 completed Mira Saul null, [facility] 11/01/2019 15:13:56 Hep B, adult 03/04/19 98 completed Mira Saul null, [facility] 11/01/2019 15:14:06 Hep B, adult 01/30/19 98 completed Mira Saul null, [facility] 11/01/2019 15:14:15 Influenza, split virus, quadrivalent, preservative 12/27/19 19 completed Mira Saul null, [facility] 11/01/2019 15:14:44 MMR 10/18/19 12 completed Mira Saul null, [facility] 11/01/2019 15:15:19 varicella 08/09/19 08 completed Mira Saul null, [facility] 11/01/2019 15:15:38 COVID-19, mRNA, LNP-S, PF, 100 mcg/0.5mL dose or 50 mcg/0.25mL dose 03/17/20 20 completed Sangeeta Layton MA null, [facility] 08/21/2021 16:17:41 COVID-19, mRNA, LNP-S, PF, 100 mcg/0.5mL dose or 50 mcg/0.25mL dose 04/14/19 21 completed MAR[place] Osobrn, [facility] 08/21/2021 16:17:41 Tdap 07/29/19 21 completed Sangeeta Layton MA null, [facility] 08/21/2021 16:17:41 COVID-19, mRNA, LNP-S, PF, 100 mcg/0.5mL dose or 50 mcg/0.25mL dose 01/21/20 21 completed MARIN Osborn, [facility] 08/21/2021 16:17:41 Influenza, split virus, quadrivalent, PF 12/22/19 20 completed MARIN Osborn, [facility] 08/21/2021 16:17:41 Influenza, MDCK, quadrivalent, PF 12/27/19 18 completed MARIN Osborn, [facility] 08/21/2021 16:17:41 Influenza, split virus, quadrivalent, PF 01/06/20 21 [facility] 16:17:41 Influenza, split virus, trivalent, preservative 01/19/20 16 completed MARIN Osborn, [facility] 08/21/2021 16:17:41 Influenza, split virus, quadrivalent, preservative 02/08/20 17 completed MARIN Osborn, [facility] 08/21/2021 16:17:41 Tdap 08/14/19 17 completed MARIN Osborn, [facility] 08/21/2021 16:17:41 influenza, unspecified formulation 12/29/19 24 completed MARIN Knight, [facility] 12/07/2024 09:03:18 COVID-19, mRNA, LNP-S, PF, juan-sucrose, 30 mcg/0.3 mL 02/04/20 23 completed Not Available [facility] 12/07/2024 09:00:24 Influenza, split virus, quadrivalent, PF 01/06/20 23 completed Not Available [facility] 12/07/2024 09:00:24 Influenza, split virus, quadrivalent, PF 06/01/19 20 cancelled patient objection MAR[place] Mcneil, [facility] 06/01/2019 10:31:58 Influenza, split virus, trivalent, PF 12/08/19 25 completed Catrachita Nelson MA [facility] 12/07/2024 09:13:04 Past Encounters Encounter ID Performer Location Encounter Start Date Encounter Closed Date Diagnosis/Indication Diagnosis SNOMED-CT Code Diagnosis ICD10 Code Diagnosis IMO Codes Diagnosis Note [id number] Sumit Zamudio MD Main Office [address] [address] [place] [address] 06/01/2019 10:03:04 06/01/2019 11:20:08 Influenza vaccination declined 283416524 Z28.21 received at [facility]. Adult [facility] th examination 254242655 Z00.00 Vaccines are UTD. Screening for malignant neoplasm of cervix 229984308 Z12.4 Anemia 513190107 D64.9 Migraine 96830347 G43.00 9 stable,con trolled with OTC meds. Hyperlipidemia 68243490 E78.5 [id number] Rafa Shine MD Main Office [address] [address] [place] [address] 12/04/2019 13:16:24 12/04/2019 13:28:26 Tuberculosis screening 974719350 Z11.1 [id number] Rafa Shine MD Main Office [address] [address] [place] [address] 12/07/2019 08:46:03 12/07/2019 09:49:48 [id number] Sumit Zamudio MD Main Office [address] [address] [place] [address] 01/18/2020 15:16:47 01/18/2020 16:23:26 Mass of right breast 6969209323 4380990 N63.10 [id number] Xiomara Cooper PA-C Main Office [address] [address] [place] [address] 08/20/2020 10:59:32 08/20/2020 11:45:22 Adult health examination 213157567 Z00.00 Vaccines are UTD. Migraine 73897087 G43.00 9 stable,con trolled with OTC meds. Anemia 535836568 D64.9 heavy menses. Pt. is on iron supplement s. repeat labs. [id number] Juliet Ware MD Main Office [address] [facility] [address] [facility] [place] [address] 08/21/2021 16:01:30 08/21/2021 16:39:31 Adult health examination 650306521 Z00.00 Vaccines are UTD. Migraine 43658907 G43.00 9 stable,con trolled with OTC meds. Gastroesop hageal reflux disease 488032411 K21.9 [id number] Juliet Ware MD Main Office [address] [place] [address] 08/25/2022 15:43:47 08/26/2022 08:31:58 Adult health examination 399956096 Z00.00 Vaccines are UTD. Pt sees ACCOUNTS PAYABLE ACCOUNTANT yearly Migraine 53130168 G43.00 9 stable, controlled with OTC meds. Mass of right breast 446 0393454 1272584 N63.10 Last mammogram was 3 years ago. Pt has a ACCOUNTS PAYABLE ACCOUNTANT appointmen t at the end of the month and will discuss the appropriat e next steps. [id number] Gino Moulton MD Main Office [address] [place], [place] [address] 11/23/2023 08:29:44 11/23/2023 09:24:30 Adult health examination 726606788 Z00.00 Vaccines are UTD. Pt sees ACCOUNTS PAYABLE ACCOUNTANT yearly. Migraine 32689269 G43.00 9 6-8 migraines/ month in the last 6 months. Recommend to try topiramate 25 mg for 2 weeks, then 50 mg preventati ve dose and return with migraine diary in 6 weeks. PT. takes Excedrin migraine for acute episodes and is able to control headache with that. Follow up in 6 weeks. Generalize d anxiety disorder 21124516 F41.1 Moderately increased ADRY score, but pt. reports sleeping well and manages it with therapy monthly. Not interested in pharmacolo gic management . Body mass index 25-29 - overweight 064118639 E66.3 Z68.25 recommend to continue exercise and low calorie diet. Check labs. Weight gain 9844926 R63. 5 r/o thyroid disease. Hyperlipidemia 49191838 E78.5 Fatigue 89126748 R53.83 Lymphadenitis 83373082 I 88.9 R. breast. Last breast mammogram and ultrasound was stable last year. Pt. will discuss f/u with ACCOUNTS PAYABLE ACCOUNTANT at her visit in January. Screening for malignant neoplasm of cervix 582880939 Z12.4 [id number] Gino Moulton MD Main Office [address] [facility] [address] [facility] [place] [id number] 01/20/2024 10:19:00 01/20/2024 10:59:53 Migraine 94012898 G43.009 Continue Nurtec. F/u with neuro. Cervico-oc cipital neuralgia 60418901 M54.81 F/u with neuro as scheduled. Leukocytosis 939216228 D 72.829 repeat CBC in 1 m. [id number] Gino Moulton MD Main Office [address] [facility] [address] [place] [address] 12/07/2024 08:58:53 12/07/2024 10:04:41 Adult health examination 035879803 Z00.00 Vaccines are UTD. Pt sees ACCOUNTS PAYABLE ACCOUNTANT yearly. Needs infl uenza immunization 873684806 Z23 19 YEARS AND OLDER ONLY Generalize d anxiety disorder 59022490 F41.1 455091 Moderately increased ADRY score, but pt. reports sleeping well and manages it with therapy monthly. Not interested in pharmacolo gic management . Cervico-oc cipital neuralgia 87406007 M54.81 recommend to see neurologis t for occipital block injection. pt had relief after injection in the past, but neurologis t left that she saw at [facility]. Migraine 65557117 G43.00 9 Has frequent ,up to 3 times per week, migraines. Pt takes Nurtec ODT for rescue. Tried amitriptyl ine 10 mg last year with multiple side effects , had to discontinu e. Seen by [facility] neurologis t , but she left before work up was completed. Pt had one occipital nerve injection which provided relief for over 6 weeks.missy m to return to neurology for injections . Start topiramate 25 mg daily, increase to 50 mg after 2-4 weeks if tolerated. 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 repeat CBC Health Concerns Section Related Observation LastModified by Organization Detai ls LastModified Time None Recorded Concern Status LastModified by Organization Details LastModified Time None Recorded Advance Directives Directive None Recorded Payers Insurance Date Sequence Insurance Name Policy Number Policy Mcdonald Covered Member ID Mcdonald Member ID Guarantor Name 01/08/2025 1 [facility] [id number] Fam Epps [id number] Elba Epps 12/07/2024 1 [facility] [id number] 3 Elba Epps [id number] Elba Epps Notes Date Note Type Note Provider Name and Address Organization Details Recorded Time 08/21/2021 text/html Generic HPI TemplateReported by [email or web address] year old female for annual PE. Sees ACCOUNTS PAYABLE ACCOUNTANT yearly. H/o abnormal PapSmear. Vaccines are up to date.migraines are now more frequent . IN the past month she had 4 migraine. Pt. takes OTC Excedrin migraine.GERD. Takes otc PPI.BMI is 22.1. ADRY score is 5 . Pt. reports some anxiety secondary to stress for the past 2 months.ROS as noted in the HPI [facility] [address] [facility] [address], [place], [address], [facility] [place] 08/21/2021 17:01:03 08/25/2022 text/html Generic HPI TemplateReported by [email or web address] year old female for annual PE. Sees ACCOUNTS PAYABLE ACCOUNTANT yearly. Vaccines are up to date.Pt reports tender lump in the upper outer quadrant of right breast that has gradually gotten bigger over the past 3 years.Migraines are occurring weekly. In the past month she had 4 migraines. Pt. takes OTC Excedrin migraine with relief and hydrates.She is no longer taking anything for GERD.BMI is 22.5.ACCOUNTS PAYABLE ACCOUNTANT scheduled for the end of this monthGAD score is 4. Pt. reports some anxiety secondary to stress but does not desire any medications. She is going to therapy every Tuesday morning in [place]. ROS as noted in the HPI [facility] [address], [place], [address], [facility] [place] 08/25/2022 17:13:16 11/23/2023 text/html Generic HPI TemplateReported by [email or web address] year old female for annual PE. Sees ACCOUNTS PAYABLE ACCOUNTANT yearly, next appt in January.PapSmear always abnormal, so gets annual colposcopy at [facility]. 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 Pt. was seen at [facility] neurology and diagnosed with occipital neuralgia. Had successful cortisone injection in the L. neck . Now f/u is in March. Pain improved but is not resolved . PT. will likely need R. neck injection as well. Migraine is improved . Pt. started on Nurtec for prevention every other day.Labs are all stable. WBcs were under norm. Xiomara Cooper PA-C [address] [facility] [address], [place], [address], [facility] [place] 01/20/2024 13:02:01 12/07/2024 text/html Generic HPI TemplateReported by [email or web address] year old female for annual wellness visit..Sees ACCOUNTS PAYABLE ACCOUNTANT yearlyPapSmear always abnormal, so gets annual colposcopy at [facility].Mammogram last in 2022. Not due for regular [...] She is going to therapy monthly in [place].ROS as noted in the HPI Xiomara Cooper PA-C [address] [address], [place], [address], [facility] 12/07/2024 12:28:41 OBGyn Episode No OBEpisode recorded.
== END 2025-03-08 09:12 | disposition home or self-care (01) ==
LOC: HO.HSM 08:33
PROVIDERS: PCP Physician Assistant Medical; Visit Provider Nurse Practitioner
DX: G43.009 Migraine without aura, not intractable, without status migrainosus (principal); M54.81 Occipital neuralgia
CPT/HCPCS: 99214